=== PATIENT | female | born 1950 | race Caucasian/White ===

== ENCOUNTER 2024-05-30 15:40 | Emergency (ER) | payer MEDICARE, SELFPAY ==
[2024-05-30 15:42] VITALS: BP 135/74; PULSE 63; RESP 16; TEMP 35.9; O2SAT 100
--- NOTE | 2024-05-30 16:06 | EKG12_ITS ---
Test Reason : GENERAL Blood Pressure : / mmHG Vent. Rate : 058 BPM Atrial Rate : 058 BPM P-R Int : 152 ms QRS Dur : 084 ms QT Int : 454 ms P-R-T Axes : 059 006 028 degrees QTc Int : 445 ms Sinus bradycardia with sinus arrhythmia Otherwise normal ECG Confirmed by WILLIAMS MARSH, KANDACE ([id number]), supervising editor news reel CARLOS AGGARWAL ([id number]) on 06/01/2024 7:53:31 AM Referred By: Confirmed By:KANDACE KRAMER MD
--- NOTE | 2024-05-30 16:09 | NURSING ---
NO OLD EKGS
--- NOTE | 2024-05-30 16:21 | EX.ED.DYSGE1 ---
HPI <ERICA Snyder - Last Filed: 05/30/24 19:49> History of Present Illness Chief Complaint: Nausea/Vomiting Narrative Narrative: Patient is 73-year-old female who does not see a primary care physician who is not currently on any medications. Patient does not smoke, drinks alcohol occasionally who presents to the emergency department for sudden onset of back pain, an episode of nausea and vomiting, she states it felt like she was bearing down. Patient was with her daughter shopping, they immediately drove her here. Patient states she is still having slight pain however is nothing like what it was. She denied any syncopal episode, she denied any abdominal pain, chest pain, denies any bowel or bladder incontinence. PFSH <ERICA Snyder - Last Filed: 05/30/24 19:49> [facility] Home Medications ?Medication ?Instructions ?Recorded ?Last Taken ?Type nitrofurantoin 100 mg PO Q12H 5 days #10 caps 05/30/24 Unknown Rx monohydrate/macrocrystals 100 mg capsule (Macrobid) Allergy/AdvReac Type Severity Reaction Status Date / Time Penicillins (PCN) Allergy Mild Rash Verified 05/30/24 15:41 Social History Smoking Status: Never smoker ROS <ERICA Snyder - Last Filed: 05/30/24 19:49> ROS ED ROS Narrative Constitutional: Negative for fever, chills, weight loss, weakness Eyes: Negative for vision loss, vision change, double vision ENT: Negative for any sore throat, ear pain, congestion Cardiovascular: Negative for any chest pain, tightness, palpitations Respiratory: Negative for any cough, sputum production, hemoptysis, dyspnea, dyspnea on exertion, orthopnea Gastrointestinal: Negative for any abdominal pain, diarrhea, constipation, blood in stool, blood in vomit. Positive for nausea and vomiting : Negative for any urinary frequency, dysuria, retention, blood in urine Muscle skeletal: Negative for any neck pain. Positive for mid back pain Neurological: Negative for any headache, syncope, dizziness Skin: Negative for any rashes, itching, abrasions, lacerations Psychiatric: Negative for any depression, anxiety, stress, suicidal ideation, homicidal ideation Hematologic: Negative for any excessive bruising, easy bleeding EXAM <ERICA Snyder - Last Filed: 05/30/24 19:49> Physical Exam Narrative Exam Narrative: Vital signs reviewed. Patient on my exam showed no acute process. HEET: Head normocephalic atraumatic, TMs clear bilaterally. Posterior pharynx is clear, moist mucous membranes. Nares clear bilaterally. Neck: Supple with no lymphadenopathy or tenderness. No signs of meningismus. Cardiac: Regular rate and rhythm no murmurs gallops or rubs, equal peripheral pulses bilaterally. Respiratory: Lungs clear to auscultation bilaterally. No chest tenderness. Abdomen: Soft, nontender, nondistended. No abdominal bruit or pulsatile masses. No hepatosplenomegaly Extremities: No peripheral edema, no signs of gross trauma or deformity. Active full range of motion of all extremities. Neuro: Cranial nerves II through XII intact, no focal neurological deficits. Skin: Clean dry and intact with no rash, purpura, petechiae, vesicles or pustules. Backs/flank: No CVA tenderness, no midline spinal tenderness, no deformity. Psych: Normal mood and affect. No SI, HI or acute psychosis. Const Vital Signs: 05/30/24 15:42 05/30/24 17:40 05/30/24 19:00 Temperature 96.7 F L Temperature Source Temporal Pulse Rate 63 76 61 Respiratory Rate 16 18 16 Blood Pressure 135/74 H 137/64 H 109/71 Blood Pressure Mean 94 88 83 Pulse Ox 100 97 97 Oxygen Delivery Method Room Air Room Air Room Air 05/30/24 19:30 Temperature Temperature Source Pulse Rate Respiratory Rate Blood Pressure 123/69 H Blood Pressure Mean 87 Pulse Ox Oxygen Delivery Method Positive well nourished and well developed General Appearance ED: well developed <Dr. Nelson Rios MD - Last Filed: 05/30/24 19:52> Physical Exam Const Vital Signs: 05/30/24 15:42 05/30/24 17:40 05/30/24 19:00 Temperature 96.7 F L Temperature Source Temporal Pulse Rate 63 76 61 Respiratory Rate 16 18 16 Blood Pressure 135/74 H 137/64 H 109/71 Blood Pressure Mean 94 88 83 Pulse Ox 100 97 97 Oxygen Delivery Method Room Air Room Air Room Air 05/30/24 19:30 Temperature Temperature Source Pulse Rate Respiratory Rate Blood Pressure 123/69 H Blood Pressure Mean 87 Pulse Ox Oxygen Delivery Method MDM <ERICA Snyder - Last Filed: 05/30/24 19:49> MDM Lab Data Labs: Laboratory Results - last 24 hr 05/30/24 05/30/24 05/30/24 16:21 18:11 18:50 WBC 8.3 RBC 4.74 Hgb 13.2 Hct 41.1 MCV 86.7 MCH 27.8 MCHC 32.1 RDW Std Deviation 43.3 RDW Coeff of Carina 13.7 Plt Count 220 MPV 10.9 Immature Gran % (Auto) 0.200 Neut % (Auto) 79.2 H Lymph % (Auto) 13.1 L Rankin % (Auto) 7.1 Eos % (Auto) 0.0 Baso % (Auto) 0.4 Absolute Neuts (auto) 6.6 Absolute Lymphs (auto) 1.09 Nucleated RBC % 0 Sodium 141 Potassium 4.2 Chloride 111 H Carbon Dioxide 23.0 Anion Gap 7 BUN 21 H Creatinine 0.98 Est GFR (MDRD) Af Amer 71 Est GFR (MDRD) Non-Af 59 L BUN/Creatinine Ratio 21.4 H Glucose 87 Calcium 8.9 Total Bilirubin 0.40 AST 142 H ALT 62 H Alkaline Phosphatase 117 Troponin I High Sens < 3 L 4 Total Protein 6.9 Albumin 3.7 Globulin 3.2 Albumin/Globulin Ratio 1.2 Lipase 43 Urine Color Straw Urine Clarity Clear Urine pH 8.0 Ur Specific Faison 1.010 Urine Protein Negative Urine Glucose (UA) Normal Urine Ketones Negative Urine Occult Blood Negative Urine Nitrite Negative Urine Bilirubin Negative Urine Urobilinogen Normal Ur Leukocyte Esterase 25 H Urine RBC 0 SEEN Urine WBC 10-25 SEEN Ur Squamous Epith Cells 0 SEEN Urine Bacteria 1+ Urine Mucus 1+ Radiography Diagnostic Testing: Clinical Impression(s) from Imaging Studies Chest/Abdomen/Pelvis CTA 05/30/24 17:12 IMPRESSION: No demonstrated pulmonary embolism or arterial dissection. There are no acute findings. STUDY: CTA Chest and CTA Abdomen and Pelvis W/ Contrast Injection (and W/O Contrast Images if performed) REASON FOR EXAM: Female, 73 years old. Back pain TECHNIQUE: Axial CT angiography multi-detector data acquisition was obtained following intravenous administration of IV 100mL Isovue-370 contrast. Axial images and MIP images were reconstructed from the axial data set. Post-processing of the angiographic images was performed, with multiplanar reformation and 3D reconstruction. MIPS images were obtained. Individualized dose optimization techniques were used for this CT. COMPARISON: None. FINDINGS: The visualized lung bases are unremarkable. The visualized portions of the heart are within normal limits. Normal liver. Normal gallbladder and extrahepatic biliary system. Normal spleen. Normal pancreas. Normal bilateral adrenal glands. No acute findings of the right kidney. There are hypodensities in the left kidney. These are consistent for cysts. No follow up required. Normal visualized stomach. Normal small intestine. There are multiple colonic diverticula consistent with diverticulosis. The appendix is visualized and appears normal. Normal inferior vena cava. Normal retroperitoneum. Normal urinary bladder. Normal visualized uterus. There is a small umbilical hernia containing fat. There are diffuse degenerative changes of the visualized lumbar spine. There is an unremarkable-appearing IVC. Abdominal aorta: There are calcifications of the abdominal aorta. This is consistent for atherosclerotic disease. There is no abdominal aortic aneurysm. Celiac and superior mesenteric arteries: There is mild diffuse narrowing. Inferior mesenteric artery: There is mild diffuse narrowing. Right renal artery(arteries): There is mild diffuse narrowing. Left renal artery(arteries): There is mild diffuse narrowing. Right common iliac artery: There is mild diffuse narrowing. Right external iliac artery: There is mild diffuse narrowing. Right internal iliac artery: There is mild diffuse narrowing. Left common iliac artery: There is mild diffuse narrowing. Left external iliac artery: There is mild diffuse narrowing. Left internal iliac artery: There is mild diffuse narrowing. IMPRESSION: (NOT LISTED IN ORDER OF SIGNIFICANCE) There are no acute findings. Diverticulosis. No aortic aneurysm. No abdominal aortic dissection Other findings as above. Electronically Signed: Travis Winchester MD at 18:29 EDT , EKG Sinus bradycardia with sinus arrhythmia: Attestation: I personally reviewed and interpreted this EKG as follows: Comments: Sinus bradycardia with sinus arrhythmia, rate of 58 bpm, [place] interval 152 ms, QRS duration 84 ms, no acute ST elevation, no acute infarct noted. Treatment and Re-Evaluation :: Differential diagnosis includes however is not limited to: ACS, NM, vasovagal reaction, acute cholecystitis, biliary colic, Patient appears generally well, vital signs are stable, patient is nontoxic-appearing. Presenting to the emergency department with complaints of severe back pain with a bearing down sensation, nausea and vomiting. Patient will receive an abdominal pain workup as well as a chest pain workup. Patient was given IV fluids, Zofran and morphine. All radiologic examinations were read, reviewed by the emergency department attending. From these reads, a plan of care will be put in place. Patient will be reevaluated Patient's laboratory values showed normal CBC, patient's chemistries show chloride of 111, creatinine 0.98 which is stable. Alkaline phosphatase 142, ALT of 62, we this is reactive from vomiting. Troponin less than 3. Lipase negative. Patient will receive a delta troponin. CTA of the chest abdomen pelvis shows no acute findings, no aortic aneurysm. No abdominal aortic dissection. Patient's urinalysis did have 1+ bacteria, 10-25 white blood cells, 25 leukocyte esterase, speaking with the patient on reevaluation, she has had slight urgency recently. This we sent for culture, patient will be placed on Macrobid twice a day for 5 days. Currently waiting on the delta troponin Delta troponin was negative. At this time, patient will be treated for her UTI, she was given Macrobid before discharge. Twice a day for 5 days. She will follow-up outpatient. All questions answered, stable for discharge. <Dr. Nelson Rios MD - Last Filed: 05/30/24 19:52> [facility] Narrative Medical decision making narrative: I have personally performed a face to face assessment of the patient and have reviewed the ESTEFANIA Note. I performed a substantive portion of the visit including all aspects of the following. My maier findings include: History is previously healthy 73-year-old female states she was at [employer] today not doing anything active for in particular when she suddenly had simultaneous onset of pain across her low back nonlateralizing and the need to have a bowel movement. After having a bowel movement that was otherwise normal the pain did not go away. She came here to the ER and on the way vomited and then the pain eased. She still has the pain right now but it is not as bad. She denies any abdominal discomfort, chest discomfort, dyspnea, near-syncope or syncope, or upper back discomfort. No radiation of discomfort, numbness, weakness in her lower extremities. No bowel or bladder dysfunction. Never had this before. Exam is nontender back normal inspection no CVA tenderness. She is indicating at the level of the kidneys or lower as the location of pain. Abdomen soft nontender nondistended normal inspection no pulsatile masses. Strong pulses symmetric bilateral feet. Heart regular, lungs clear, will-appearing at this time, is not in pain as she is actively sitting up. Medical Decison Making certainly reasonable to evaluate for the possibility of acute coronary syndrome, ruptured AAA, perforated viscus, diverticulitis, although the pattern and symptoms suggest a GI etiology. She is doing well right now. Obtaining labs, EKG with a delta troponin and CT of the abdomen/pelvis along with a screening chest x-ray. Prior to getting CT, daughter told REINSTATEMENT CLERK that multiple family members have thoracic aortic aneurysms, and they would like her evaluated for that. Although patient's symptoms do not suggest an intrathoracic etiology, we were happy to change the CT to CT angiography of the chest/abdomen/pelvis in order to additionally evaluate for this and cancel the CXR. I reviewed these images as well as the report and I agree with it; it is negative for aneurysm, dissection, or anything else acute in this area. The urine shows some mild signs of infection. She is admitting to some urinary frequency. Unknown if a bladder spasm was the cause of her low back pain, but there are amenable to treating this empirically at this time and she will follow-up. Of note, vital signs at discharge are normal. Referred to next doc on unassigned list, Dr. Ramos. Other additions or changes: [None] Lab Data Attestation: I reviewed the patient's lab results. Labs: Laboratory Results - last 24 hr 05/30/24 05/30/24 05/30/24 16:21 18:11 18:50 WBC 8.3 RBC 4.74 Hgb 13.2 Hct 41.1 MCV 86.7 MCH 27.8 MCHC 32.1 RDW Std Deviation 43.3 RDW Coeff of Carina 13.7 Plt Count 220 MPV 10.9 Immature Gran % (Auto) 0.200 Neut % (Auto) 79.2 H Lymph % (Auto) 13.1 L Rankin % (Auto) 7.1 Eos % (Auto) 0.0 Baso % (Auto) 0.4 Absolute Neuts (auto) 6.6 Absolute Lymphs (auto) 1.09 Nucleated RBC % 0 Sodium 141 Potassium 4.2 Chloride 111 H Carbon Dioxide 23.0 Anion Gap 7 BUN 21 H Creatinine 0.98 Est GFR (MDRD) Af Amer 71 Est GFR (MDRD) Non-Af 59 L BUN/Creatinine Ratio 21.4 H Glucose 87 Calcium 8.9 Total Bilirubin 0.40 AST 142 H ALT 62 H Alkaline Phosphatase 117 Troponin I High Sens < 3 L 4 Total Protein 6.9 Albumin 3.7 Globulin 3.2 Albumin/Globulin Ratio 1.2 Lipase 43 Urine Color Straw Urine Clarity Clear Urine pH 8.0 Ur Specific Faison 1.010 Urine Protein Negative Urine Glucose (UA) Normal Urine Ketones Negative Urine Occult Blood Negative Urine Nitrite Negative Urine Bilirubin Negative Urine Urobilinogen Normal Ur Leukocyte Esterase 25 H Urine RBC 0 SEEN Urine WBC 10-25 SEEN Ur Squamous Epith Cells 0 SEEN Urine Bacteria 1+ Urine Mucus 1+ Radiography Diagnostic Testing: Clinical Impression(s) from Imaging Studies Chest/Abdomen/Pelvis CTA 05/30/24 17:12 IMPRESSION: No demonstrated pulmonary embolism or arterial dissection. There are no acute findings. STUDY: CTA Chest and CTA Abdomen and Pelvis W/ Contrast Injection (and W/O Contrast Images if performed) REASON FOR EXAM: Female, 73 years old. Back pain TECHNIQUE: Axial CT angiography multi-detector data acquisition was obtained following intravenous administration of IV 100mL Isovue-370 contrast. Axial images and MIP images were reconstructed from the axial data set. Post-processing of the angiographic images was performed, with multiplanar reformation and 3D reconstruction. MIPS images were obtained. Individualized dose optimization techniques were used for this CT. COMPARISON: None. FINDINGS: The visualized lung bases are unremarkable. The visualized portions of the heart are within normal limits. Normal liver. Normal gallbladder and extrahepatic biliary system. Normal spleen. Normal pancreas. Normal bilateral adrenal glands. No acute findings of the right kidney. There are hypodensities in the left kidney. These are consistent for cysts. No follow up required. Normal visualized stomach. Normal small intestine. There are multiple colonic diverticula consistent with diverticulosis. The appendix is visualized and appears normal. Normal inferior vena cava. Normal retroperitoneum. Normal urinary bladder. Normal visualized uterus. There is a small umbilical hernia containing fat. There are diffuse degenerative changes of the visualized lumbar spine. There is an unremarkable-appearing IVC. Abdominal aorta: There are calcifications of the abdominal aorta. This is consistent for atherosclerotic disease. There is no abdominal aortic aneurysm. Celiac and superior mesenteric arteries: There is mild diffuse narrowing. Inferior mesenteric artery: There is mild diffuse narrowing. Right renal artery(arteries): There is mild diffuse narrowing. Left renal artery(arteries): There is mild diffuse narrowing. Right common iliac artery: There is mild diffuse narrowing. Right external iliac artery: There is mild diffuse narrowing. Right internal iliac artery: There is mild diffuse narrowing. Left common iliac artery: There is mild diffuse narrowing. Left external iliac artery: There is mild diffuse narrowing. Left internal iliac artery: There is mild diffuse narrowing. IMPRESSION: (NOT LISTED IN ORDER OF SIGNIFICANCE) There are no acute findings. Diverticulosis. No aortic aneurysm. No abdominal aortic dissection Other findings as above. Electronically Signed: Travis Winchester MD at 18:29 EDT Reading Location ID and State: [facility] / [place] , Service support , Discharge Plan Triage Chief Complaint: Nausea/Vomiting Other Complaint: Flank Pain ED Midlevel Provider: Jeramie Funez ED Provider: Nelson Rios Dx/Rx/DC Orders Clinical Impression: Back pain, Acute UTI Instructions: Urinary Tract Infections in Women, ED Pain, Acute, Uncertain Cause Prescriptions: New nitrofurantoin monohyd/m-cryst [Macrobid] 100 mg capsule 100 mg PO Q12H 5 Days Qty: 10 0RF Rx Instructions: must administer with a meal/food Primary Care Provider: Care Physician,No Primary Referrals: Jeramie Ramos MD [Med Staff - Active Staff] - NOT,DEFINED [Non-Staff] - Activity Restrictions/Additional Instructions: Please follow-up outpatient. Print Language: Lithuanian Disposition Disposition: Home, Self Care
[2024-05-30] MEDS: 0.9% Normal Saline (1000mL) 1,000 ML 999 ML IV (16:24)
--- OUTSIDE RECORDS SUMMARY | 2024-05-30 16:24 | XMS RPT_ITS | CCD ---
Author Organization [facility] Care Team Providers Care Chief Building Inspector Name Role Phone ADDISON TONIECR Attending Unavailable NO FAMILY DOCTOR, NO FAMILY DOCTOR Primary Care Unavailable LUCÍA MORILLO Attending Unavailable NO FAMILY DOCTOR, NO FAMILY DOCTOR Primary Care Unavailable Unavailable Primary Care Provider UnavailIam Terry MD, [facility] Primary Care [facility] ider ADITYA AARON Attending Unavailable MEGA PINEDO Attending Unavailable Allergies Allergy Classification Reported Allergen(s) Allergy Type Date of Onset Reaction(s) Facility (3 sources) Cephalexin; Translations: [CEPHALEXIN] Drug Allergy 11-25-2016 [facility] (3 sources) Ciprofloxacin; Translations: [CIPROFLOXACIN] Drug Allergy 08-25-2015 [facility] (3 sources) Neomycin; Translations: [NEOMYCIN] Drug Allergy 12-05-2016 [facility] (3 sources) Penicillin; Translations: [PENICILLIN] Drug Allergy 12-05-2016 [facility] Medications Current Medications Medication Drug Class(es) Dates Sig (Normalized) Sig (Original) amoxicillin 875 mg / clavulanate 125 mg oral tablet (2 sources) Penicillin-class Antibacterial Start: 03-11-2024 End: 03-21-2024 take 1 tablet by mouth every twelve hours amoxicillin-clavulan ate potassium (AUGMENTIN) 875-125 mg per tablet Indications: Mastoiditis of left side Take 1 tablet by mouth every 12 hours for 10 days. 20 tablet 0 03/11/2024 03/21/2024 Active [id number] 0.3 ml EPINEPHrine 1 mg/ml auto-injector (2 sources) alpha-Adrenergic Agonist, beta-Adrenergic Agonist, Catecholamine Start: 11-25-2016 EPINEPHrine (EPIPEN 2-PARIS) 0.3 mg/0.3 mL auto-injector Inject 0.3 mL intramuscularly as needed. 1 Each 11/25/2016 Active ibuprofen 800 mg oral tablet (3 sources) Nonsteroidal Anti-inflammatory Drug Start: 03-11-2024 take 1 tablet by mouth every eight hours as needed for pain ibuprofen (MOTRIN) 800 mg tablet Indications: Mastoiditis of left side Take 1 tablet by mouth every 8 hours as needed for pain. 20 tablet 03/11/2024 Active triamcinolone acetonide 1 mg/ml topical cream (2 sources) Corticosteroid Start: 08-01-2023 triamcinolone acetonide (KENALOG) 0.1 % cream Indications: Atopic dermatitis, unspecified type , Discoloration of skin Apply to affected area two times a day as needed. 453.6 g 08/01/2023 Active Problems Active Problems Problem Classification Problem Date Documented Da te Episodic/Chronic Allergic reactions (1 source) Allergy status to penicillin Onset: 10-03-2018 Episodic Fluid and electrolyte disorders (1 source) Hypokalemia Onset: 10-03-2018 Episodic Lymphadenitis (1 source) Lymphadenopathy; Translations: [Generalized enlarged lymph nodes] 03-17-2024 Episodic Other inflammatory condition of skin (1 source) Erythematous condition, unspecified; Translations: [Unspecified erythematous condition] 03-17-2024 Episodic Other lower respiratory disease (2 sources) Shortness of breath; Translations: [Shortness of breath] Onset: 10-03-2018 Episodic Other screening for suspected conditions (not mental disorders or infectious disease) (1 source) Patient encounter status; Translations: [Encounter for screening mammogram for malignant neoplasm of breast] 03-17-2024 Episodic Other skin disorders (1 source) Dyshidrosis [pompholyx] Onset: 10-03-2018 Episodic Other skin disorders (2 sources) Rash and other nonspecific skin eruption; Translations: [Rash and other nonspecific skin eruption] Onset: 10-03-2018 Episodic Otitis media and related conditions (1 source) Left mastoiditis; Translations: [Unspecified mastoiditis, left ear] 03-11-2024 Episodic Skin and subcutaneous tissue infections (1 source) Erysipelas; Translations: [Erysipelas] 03-17-2024 Episodic Unclassified (1 source) Exposure to other specified factors, initial encounter Onset: 10-03-2018 Unclassified (2 sources) Other allergy, initial encounter; Translations: [Other allergy, initial encounter] Onset: 10-01-2018 Unclassified (3 sources) Allergy, unspecified, initial encounter; Translations: [Allergy, unspecified, initial encounter] Onset: 10-03-2018 Unclassified (2 sources) Pruritus, unspecified; Translations: [Pruritus, unspecified] Onset: 10-03-2018 Unclassified (1 source) Other custodial (current) drug therapy Onset: 10-01-2018 Unclassified (1 source) Anaphylactic shock, unspecified, initial encounter Onset: 10-01-2018 Past or Other Problems Problem Classification Problem Date Documented Da te Episodic/Chronic Superficial injury; contusion (2 sources) Contusion of left knee; Translations: [Contusion of left knee, initial encounter] Onset: 08-25-2015 08-25-2015 Episodic Results Test Name Value Interpretation Reference Range Facility CNOVon 03-17-2024 CNOV Office Visit (INTMLN ) STEPHEN THOMAS ([id number]) 1950 F Date Time Provider Department 03/17/24 9:00 AM ADITYA AARON INTMLN During your visit today, we recorded the following information about you: Temperature Pulse Blood pressure Weight 97.8 degrees 62/minute 116/74 62.4 kg Aditya Aaron, LODGE SALES ASSOCIATE.PREPARATION DEPARTMENT SUPERVISOR 03/17/2024 9:48 AM Signed CC:ED follow up S:seen at [place] [facility] 03/12/24 See summary below: ED Course as of 03/12/24 [email or web address] Alana Lea's Documentation FriMar 12, [address] SINUS WO IVCON IMPRESSION: Clear sinuses. Mastoid air cells and middle ear cavities are clear. No abnormal soft tissue thickening or stranding. 1642 CBC + AUTO DIFF: WBC 7.28 RBC 5.18 Hemoglobin 14.4 Hematocrit 45.4 MCV 87.6 MCH 27.8 MCHC 31.7 RDW-CV 13.5 Platelet Count 236 MPV 11.2 Neut% 69.5 Abs Neut (ANC) 5.06 Lymph% 18.3 Abs Lymph 1.33 Loudoun% 11.1 Abs [place]oun 0.81 Eosin% 0.0 Abs Eosin <0.03 Baso% 0.7 Abs Baso 0.05 Immature Gran % 0.4 IMMATURE GRANS (ABS) 0.03 NRBC 0.0 Absolute nRBC <0.01 DTYPE Auto I have personally reviewed and interpreted the above laboratory study. Findings: No leukocytosis, anemia, quantitative platelet abnormalities 1642 BASIC METABOLIC PANEL: Glucose 81 BUN 19 Creatinine 0.94 Sodium 140 Potassium 4.7 Chloride 102 CO2 28 Anion Gap 10 Calcium 9.8 eGFR 64 I have personally reviewed and interpreted the above laboratory study. Findings: No clinically significant renal or electrolyte abnormalities Clinical Impressions as of 03/12/24 1737 Erysipelas Lymphadenopathy Facial erythema MDM / Disposition / Plan On evaluation, the patient does have left-sided posterior auricular lymphadenopathy associated with erythema that extends to the preauricular region and involves the face. The erythema is very mild at this time. There is no rash elsewhere to suggest systemic infection. Patient is afebrile and hemodynamically stable in the emergency department. No evidence of acute otitis media identified on physical exam. No evidence of otitis externa. Patient has no headache and no focal neurologic symptoms. Laboratory studies without any acute clinically significant laboratory abnormalities. CT demonstrating no evidence of mastoiditis at this time. Given the clinical history and progression of symptoms, most likely erysipelas at this time. Low suspicion for deep space or NET FISHER infection at this time. Patient was previously prescribed Augmentin and has been tolerating it for 1 dose. She requested potentially changing antibiotics due to prior intolerance of Augmentin causing rash previously. We discussed potential to change to clindamycin, however risk and benefits of changing antibiotics were discussed and patient elected to continue Augmentin at this time. Ele is reestablishing care today, she was last seen for acute problems in 2019 and has not had any medical health care since that time. She is taking the Augmentin as directed and has had significant improvement. Resolution of redness and swelling, there is no further pain or swollen lymph nodes.. Taking Benadryl which she has had a prior history of a rash with penicillin. She denies any chronic medical problems. Hobbies include sewing and playing cards. O:BP 116/74 Pulse 62 Temp 36.6 ?C (97.8 ?F) Wt 62.4 kg (137 lb 9.1 oz) SpO2 98% BMI 25.57 kg/m? PHYSICAL EXAMINATION: General appearance: Well appearing, alert, in no acute distress, well-hydrated, well nourished. Skin: No facial erythema Head: Normocephalic, no masses, lesions, tenderness or abnormalities, no lymphadenopathy Ears: External ears normal, canals clear Neck: Supple, no adenopathy A:(A46) Erysipelas (primary encounter diagnosis) (R59.1) Lymphadenopathy Comment: Resolved Plan: Finish Augmentin and continue Benadryl. Call if there is any allergic reaction (Z12.31) Encounter for screening mammogram for breast cancer Plan: LOGAN SCREENING W LIZETTE Follow-up for Medicare wellness exam to establish care with Dr. Emanuel. Aditya Aaron APRN.PREPARATION DEPARTMENT SUPERVISOR Allergies As of Date: 03/17/2024 Noted Allergy Reaction CIPROFLOXACIN 08/25/2015 4 - Hives Comments: PT STATES SHE IS ALLERGIC TO MANY ANTIBIOTICS-CAN'T RECALL THE NAMES BUT KNOWS SHE IS ABLE TO TAKE SULFA KEFLEX (CEPHALEXIN) 11/25/2016 2 - Rash NEOMYCIN 12/05/2016 2 - Rash PENICILLIN 12/05/2016 2 - Rash Date Reviewed: 03/12/2024 Reviewed by: Sayra Shah RN - Fully Assessed Reason for Visit: Hospital F/U [57] Cmt: Pt has no concerns Primary Visit Diagnosis:Erysipelas [A46] Other Visit Diagnoses:Lymphadenopa thy [R59.1] Facial erythema [L53.9] Encounter for screening mammogram for breast cancer [Z12.31] Order(s):LOGAN SCREENING W LIZETTE [[id number]] Order #: [id number] FUTURE Prescriptions as of 03/17/2024 - amoxicillin-clavulanat e potassium (more content not included)... Normal [facility] Basic metabolic 2000 panelon 03-12-2024 Anion gap [Moles/Vol] 10 mmol/L Normal 8-15 [facility] Comment on above: Order Comment: Speci men Type: BLOOD SPECIMEN Ordering Facility: [facility] Address: [address] [place] [address] Performed By: #### 2 4321-2 #### [facility] CLIA [id number] [address] [place] [address] [place] Calcium [Mass/Vol] 9.8 mg/dL Normal 8.5-10.2 [facility] Comment on above: Order Comment: Speci men Type: BLOOD SPECIMEN Ordering Facility: [facility] Address: [address] [place] [address] Performed By: #### 2 4321-2 #### [facility] CLIA [id number] [address] [place] [address] [place] Chloride [Moles/Vol] 102 mmol/L Normal 98-107 [facility] Comment on above: Order Comment: Speci men Type: BLOOD SPECIMEN Ordering Facility: [facility] Address: [address] [place] [address] Performed By: #### 2 4321-2 #### [facility] IA [id number] [address] [place] [address] [place] CO2 [Moles/Vol] 28 mmol/L Normal 22-30 [facility] Comment on above: Order Comment: Speci men Type: BLOOD SPECIMEN Ordering Facility: [facility] Address: [address] [place] [address] Performed By: #### 2 4321-2 #### [facility] IA [id number] [address] [place] [address] [place] Creatinine [Mass/Vol] 0.94 mg/dL Normal 0.58-0.96 [facility] Comment on above: Order Comment: Speci men Type: BLOOD SPECIMEN Ordering Facility: [facility] Address: [address] [place] [address] Performed By: #### 2 4321-2 #### [facility] CLIA [id number] [place] [address] [place] Creatinine and Glomerular filtration rate.predicted panel (S/P/Bld) 64 mL/min/1.73m??? Normal >=60 [facility] Comment on above: Order Comment: Jean Pierre hebert Type: BLOOD SPECIMEN Ordering Facility: [facility] Address: [address] [place] [address] Result Comment: Freda mated Glomerular Filtration Rate (eGFR) is calculated using the 2020 CKD-EPI creatinine equation. This equation utilizes serum creatinine, sex, and age as parameters. The creatinine assay has traceable calibration to isotope dilution-mass spectrometry. Refer to KDIGO guidelines for clinical interpretation. In patients with unstable renal function, e.g. those with acute kidney injury, the eGFR may not accurately reflect actual GFR. Performed By: #### 2 4321-2 #### [facility] CLIA [id number] [place] [address] [place] Glucose [Mass/Vol] 81 mg/dL Normal 74-99 [facility] Comment on above: Order Comment: Jean Pierre hebert Type: BLOOD SPECIMEN Ordering Facility: [facility] Address: [address] [place] [address] Result Comment: The [place] Diabetes Association (ADA) provides guidance for cutoff values for fasting glucose and random glucose. The ADA defines fasting as no caloric intake for at least 8 hours. Fasting plasma glucose results between 100 to 125 mg/dL indicate increased risk for diabetes (prediabetes). Fasting plasma glucose results greater than or equal to 126 mg/dL meet the criteria for diagnosis of diabetes. In the absence of unequivocal hyperglycemia, results should be confirmed by repeat testing. In a patient with classic symptoms of hyperglycemia or hyperglycemic crisis, random plasma glucose results greater than or equal to 200 mg/dL meet the criteria for diagnosis of diabetes. Reference: Standards of Medical Care in Diabetes 2016, [place] [employer] Association. Diabetes Care. 2016.39(Suppl 1). Performed By: #### 2 4321-2 #### [facility] CLIA [id number] [address] [place] [address] [place] Potassium [Moles/Vol] 4.7 mmol/L Normal 3.7-5.1 [facility] Comment on above: Order Comment: Jean Pierre hebert Type: BLOOD SPECIMEN Ordering Facility: [facility] Address: [address] [place], [place] [address] Performed By: #### 2 4321-2 #### [facility] CLIA [id number] [address] [place] [address] [place] Sodium [Moles/Vol] 140 mmol/L Normal 136-144 [facility] Comment on above: Order Comment: Speci men Type: BLOOD SPECIMEN Ordering Facility: [facility] Address: [address] [place] [address] Performed By: #### 2 4321-2 #### [facility] IA [id number] [address] [place] [address] [place] Urea nitrogen [Mass/Vol] 19 mg/dL Normal 7-21 [facility] Comment on above: Order Comment: Speci men Type: BLOOD SPECIMEN Ordering Facility: [facility] Address: [address] [place] [address] Performed By: #### 2 4321-2 #### [facility] IA [id number] [address] [place] [address] [place] CBC W Auto Differential pane l (Bld)on 03-12-2024 Basophils (Bld) [#/Vol] 0.05 10*3/uL Normal <0.11 [facility] Comment on above: Order Comment: Speci men Type: BLOOD SPECIMEN Ordering Facility: [facility] Address: [address] [place] [address] Performed By: #### 5 7021-8 #### [facility] IA [id number] [address] [place] [address] [place] Basophils/100 WBC (Bld) 0.7 % Normal [facility] Comment on above: Order Comment: Speci men Type: BLOOD SPECIMEN Ordering Facility: [facility] Address: [address] [place] [address] Performed By: #### 5 7021-8 #### [facility] IA [id number] [address] [place] [address] [place] Differential cell count method Nom (Bld) Auto Normal [facility] Comment on above: Order Comment: Speci men Type: BLOOD SPECIMEN Ordering Facility: [facility] Address: [address] [place] [address] Performed By: #### 5 7021-8 #### [facility] CLIA [id number] [address] [place] [address] [place] Eosinophils (Bld) [#/Vol] 10*3/uL Normal <0.46 [facility] Comment on above: Order Comment: Speci men Type: BLOOD SPECIMEN Ordering Facility: [facility] Address: [address] [place] [address] Performed By: #### 5 7021-8 #### [facility] CLIA [id number] [address] [place] [address] [place] Eosinophils/100 WBC (Bld) 0.0 % Normal [facility] Comment on above: Order Comment: Speci men Type: BLOOD SPECIMEN Ordering Facility: [facility] Address: [address] [place] [address] Performed By: #### 5 7021-8 #### [facility] IA [id number] [address] [place] [address] [place] Erythrocyte distribution width (RBC) [Ratio] 13.5 % Normal 11.5-15.0 [facility] Comment on above: Order Comment: Speci men Type: BLOOD SPECIMEN Ordering Facility: [facility] Address: [address] [place] [address] Performed By: #### 5 7021-8 #### [facility] IA [id number] [address] [place] [address] [place] Hematocrit (Bld) [Volume fraction] 45.4 % Normal 36.0-46.0 [facility] Comment on above: Order Comment: Speci men Type: BLOOD SPECIMEN Ordering Facility: [facility] Address: [address] [place] [address] Performed By: #### 5 7021-8 #### [facility] IA [id number] [address] [place] [address] [place] Hemoglobin (Bld) [Mass/Vol] 14.4 g/dL Normal 11.5-15.5 [facility] Comment on above: Order Comment: Speci men Type: BLOOD SPECIMEN Ordering Facility: [facility] Address: [address] [place] [address] Performed By: #### 5 7021-8 #### [facility] IA [id number] [address] [place] [address] [place] Immature granulocytes (Bld) [#/Vol] 0.03 10*3/uL Normal <0.10 [facility] Comment on above: Order Comment: Speci men Type: BLOOD SPECIMEN Ordering Facility: [facility] Address: [address] [place] [address] Performed By: #### 5 7021-8 #### [facility] IA [id number] [address] [place] [id number] [place] Immature granulocytes/100 WBC (Bld) 0.4 % Normal [facility] Comment on above: Order Comment: Speci men Type: BLOOD SPECIMEN Ordering Facility: [facility] Address: [address] [place] [address] Performed By: #### 5 7021-8 #### [facility] IA [id number] [address] [place] [address] [place] Lymphocytes (Bld) [#/Vol] 1.33 10*3/uL Normal 1.00-4.00 [facility] Comment on above: Order Comment: Speci men Type: BLOOD SPECIMEN Ordering Facility: [facility] Address: [address] [place] [address] Performed By: #### 5 7021-8 #### [facility] IA [id number] [address] [place] [address] [place] Lymphocytes/100 WBC (Bld) 18.3 % Normal [facility] Comment on above: Order Comment: Speci men Type: BLOOD SPECIMEN Ordering Facility: [facility] Address: [address] [place] [address] Performed By: #### 5 7021-8 #### [facility] IA [id number] [address] [place] [address] [place] MCH (RBC) [Entitic mass] 27.8 pg Normal 26.0-34.0 [facility] Comment on above: Order Comment: Speci men Type: BLOOD SPECIMEN Ordering Facility: [facility] Address: [address] [place] [address] Performed By: #### 5 7021-8 #### [facility] CLIA [id number] [address] [place] [address] [place] MCHC (RBC) [Mass/Vol] 31.7 g/dL Normal 30.5-36.0 [facility] Comment on above: Order Comment: Speci men Type: BLOOD SPECIMEN Ordering Facility: [facility] Address: [address] [place] [address] Performed By: #### 5 7021-8 #### [facility] IA [id number] [address] [place] [address] [place] MCV (RBC) [Entitic vol] 87.6 fL Normal 80.0-100.0 [facility] Comment on above: Order Comment: Speci men Type: BLOOD SPECIMEN Ordering Facility: [facility] Address: [address] [place] [address] Performed By: #### 5 7021-8 #### [facility] IA [id number] [address] [place] [address] [place] Monocytes (Bld) [#/Vol] 0.81 10*3/uL Normal <0.87 [facility] Comment on above: Order Comment: Speci men Type: BLOOD SPECIMEN Ordering Facility: [facility] Address: [address] [place] [address] Performed By: #### 5 7021-8 #### [facility] CLIA [id number] [place] Monocytes/100 WBC (Bld) 11.1 % Normal [facility] Comment on above: Order Comment: Speci men Type: BLOOD SPECIMEN Ordering Facility: [facility] Address: [address] [place] [address] Performed By: #### 5 7021-8 #### [facility] CLIA [id number] [address] [place] [address] [place] Neutrophils (Bld) [#/Vol] 5.06 10*3/uL Normal 1.45-7.50 [facility] Comment on above: Order Comment: Speci men Type: BLOOD SPECIMEN Ordering Facility: [facility] Address: [address] [place] [address] Performed By: #### 5 7021-8 #### [facility] CLIA [id number] [address] [place] [address] [place] Neutrophils/100 WBC (Bld) 69.5 % Normal [facility] Comment on above: Order Comment: Speci men Type: BLOOD SPECIMEN Ordering Facility: [facility] Address: [address] [place] [address] Performed By: #### 5 7021-8 #### [facility] IA [id number] [address] [place] [address] [place] Nucleated RBC (Bld) [#/Vol] 10*3/uL Normal <0.01 [facility] Comment on above: Order Comment: Speci men Type: BLOOD SPECIMEN Ordering Facility: [facility] Address: [address] [place] [address] Performed By: #### 5 7021-8 #### [facility] IA [id number] [address] [place] [address] [place] Nucleated RBC/100 WBC (Bld) [Ratio] 0.0 /100 WBC Normal [facility] Comment on above: Order Comment: Speci men Type: BLOOD SPECIMEN Ordering Facility: [facility] Address: [address] [place] [address] Performed By: #### 5 7021-8 #### [facility] IA [id number] [address] [place] [id number] [place] Platelet mean volume (Bld) [Entitic vol] 11.2 fL Normal 9.0-12.7 [facility] Comment on above: Order Comment: Speci men Type: BLOOD SPECIMEN Ordering Facility: [facility] Address: [address] [place] [address] Performed By: #### 5 7021-8 #### [facility] CLIA [id number] [address] [place] [address] [place] Platelets (Bld) [#/Vol] 236 10*3/uL Normal 150-400 [facility] Comment on above: Order Comment: Speci men Type: BLOOD SPECIMEN Ordering Facility: [facility] Address: [address] [place] [address] Performed By: #### 5 7021-8 #### [facility] CLIA [id number] [address] [place] [address] [place] RBC (Bld) [#/Vol] 5.18 10*6/uL Normal 3.90-5.20 [facility] Comment on above: Order Comment: Speci men Type: BLOOD SPECIMEN Ordering Facility: [facility] Address: [address] [place] [address] Performed By: #### 5 7021-8 #### [facility] CLIA [id number] [address] [place] [address] [place] WBC (Bld) [#/Vol] 7.28 10*3/uL Normal 3.70-11.00 [facility] Comment on above: Order Comment: Speci men Type: BLOOD SPECIMEN Ordering Facility: [facility] Address: [address] [place] [address] Performed By: #### 5 7021-8 #### [facility] CLIA [id number] [address] [place] [address] [place] [address] SINUS WO IVCONon 03-12-[address] SINUS WO IVCON * * *Final Report* * * DATE OF EXAM: Mar 12 2024 4:06PM [facility] 0488 - CT SINUS WO IVCON / PROCEDURE REASON: Sinusitis, orbital or intracranial complications * * * * Physician Interpretation * * * * EXAMINATION: CT SINUS WO IVCON CLINICAL HISTORY: Available history in [facility] at the time of this dictation - Patient presents to the ED with complaints of LT ear pain, dx with mastoiditis and was placed on oral abx. Patient reports she was sent here for CT and IV abx. Patient denies any fevers or chills. TECHNIQUE: Spiral high resolution axial unenhanced CT images were obtained through the paranasal sinuses with sagittal, coronal reconstructions. MQ: CTSI_1 CT Radiation dose: Integrated Dose-Length Product (DLP) for this visit = 124 mGy*cm. CT Dose Reduction Employed: Automated exposure control(AEC) and iterative recon COMPARISON: None. RESULT: Post-Surgical Findings: None Sinus Chambers: Sinuses are clear. LEFT Kayleigh [place] Score: 0 RIGHT [place] Conchis Score: 0 TOTAL Kayleigh Conchis Score: 0 Nasal Cavities: Visualized nasal cavities are patent. Developmental Anomalies: None Other: The mastoid air cells and middle ear cavities are clear. The visualized mastoid air cells and middle ear cavities are clear. The soft tissues of the face and orbits are within normal limits within the limitations of the study. Localizer images: No significant findings. IMPRESSION: Clear sinuses. Mastoid air cells and middle ear cavities are clear. No abnormal soft tissue thickening or stranding. Rack Loader: [facility] Transcribe Date/Time: Mar 12 2024 4:36P Dictated by : REBEKA VICKERS MD This examination was interpreted and the report reviewed and electronically signed by: REBEKA VICKERS MD on Mar 12 2024 4:40PM EST [id number] [facility] ED NOTEon 03-12-2024 ED NOTE HNO ID: [id number] Author: KEVIN BURNS RN Service: ? Author Type: Registered Nurse Type: ED Notes Filed: 03/12/2024 17:41 Note Text: Patient received written and verbal discharge instructions. Patient verbalizes understanding and all questions were answered. Instructed to follow up with primary care doctor or follow-up doctor. No acute distress noted upon discharge and instructed to come back to emergency room if symptoms worsen. Patient verbalized understanding. All belongings with patient. Patient ambulated with steady gait out of ED. [facility] ED NOTE HNO ID: [id number] Author: AILYN RIOJAS RN Service: Emergency Medicine Author Type: Registered Nurse Type: ED Notes Filed: 03/12/2024 17:09 Note Text: Report given to Emmanuel CLARK. [facility] ED NOTE HNO ID: [id number] Author: AILYN RIOJAS RN Service: Emergency Medicine Author Type: Registered Nurse Type: ED Notes Filed: 03/12/2024 16:49 Note Text: Dr. Lea at bedside for evaluation. [facility] ED NOTE HNO ID: [id number] Author: SAYRA SHAH RN Service: ? Author Type: Registered Nurse Type: ED Notes Filed: 03/12/2024 13:49 Note Text: Patient presents to the ED with complaints of LT ear pain, dx with mastoiditis and was placed on oral abx. Patient reports she was sent here for CT and IV abx. Patient denies any fevers or chills. Plan of care: -Monitor Patient's Vital Signs for changes in condition -Monitor patient for changes in pain -Maintain patient safety and privacy -Provide comfort measures -Call light in place -Siderails up, bed in locked and low position [facility] ED PROV NOTEon 03-12-2024 ED PROV NOTE HNO ID: [id number] Author: ALANA LEA MD Service: Emergency Medicine Author Type: Physician Type: ED Provider Notes Filed: 03/12/2024 17:46 Note Text: ED Provider Note Patient Name: Stephen Thomas : 1950 SERVICE DATE: 03/12/24 History Patient presents with: Earache: Dx with mastoiditis, worsening on oral ABX HPI Stephen Thomas is a 73 year old female with no pertinent past medical history presenting with earache. Patient endorses pain in the posterior regular region of the left ear that started several days ago. She then developed redness that extended around the left ear from the posterior to the preauricular region. She went to urgent care yesterday and was given Augmentin, however had extension of the erythema and pain into the left face throughout the day today. She denies any change in auditory acuity. She denies tinnitus. She has had a headache since Friday, however no focal neurologic symptoms including numbness, weakness, paresthesias, change in vision. She denies any neck pain or neck stiffness. She has never had similar symptoms. She has no history of diabetes or immunocompromise. She denies any erythema elsewhere, however does have concomitant dermatitis which she has had chronically. No fevers reported at home. Chart review: Family practice office visit from yesterday reviewed, patient was seen for left-sided ear pain. There was concern for mastoiditis and the patient was prescribed Augmentin. She was recommended to go to the emergency department, however she declined at that time. No past medical history on file. No past surgical history on file. No family history on file. Social History Tobacco Use - Smoking status: Never - Smokeless tobacco: Never Substance and Sexual Activity - Alcohol use: Yes - Drug use: No - Sexual activity: Not on file ALLERGIES Allergen Reactions - Ciprofloxacin Hives PT STATES SHE IS ALLERGIC TO MANY ANTIBIOTICS-CAN'T RECALL THE NAMES BUT KNOWS SHE IS ABLE TO TAKE SULFA - Keflex [Cephalexin] Rash - Neomycin Rash - Penicillin Rash Review of Systems Constitutional: Negative for fatigue and fever. HENT: Positive for ear pain. Negative for facial swelling, hearing loss, sinus pain and trouble swallowing. Respiratory: Negative for cough and shortness of breath. Cardiovascular: Negative for chest pain. Gastrointestinal: Negative for abdominal pain, diarrhea, nausea and vomiting. Musculoskeletal: Negative for neck pain and neck stiffness. Skin: Positive for rash. Negative for wound. Neurological: Negative for weakness, numbness and headaches. Physical Exam Vitals [03/12/24 1345] BP Pulse Temp Temp src Resp SpO2 Weight Height 142/96 79 36.1 ?C (97 ?F) Oral 16 97 % 63.5 kg (140 lb) -- Physical Exam Constitutional: General: She is not in acute distress. Appearance: She is not ill-appearing, toxic-appearing or diaphoretic. HENT: Head: Normocephalic and atraumatic. Comments: Posterior auricular lymph node palpable and mild tenderness to palpation, there is faint erythema extending from the posterior auricular region to the preauricle region and extending into the face, well-demarcated. There are no overlying bullae. Right Ear: Tympanic membrane, ear canal and external ear normal. Left Ear: Tympanic membrane, ear canal and external ear normal. Nose: Nose normal. Mouth/Throat: Mouth: Mucous membranes are moist. Pharynx: No oropharyngeal exudate or posterior oropharyngeal erythema. Eyes: Extraocular Movements: Extraocular movements intact. Pupils: Pupils are equal, round, and reactive to light. Cardiovascular: Rate and Rhythm: Normal rate and regular rhythm. Pulses: Normal pulses. Heart sounds: No murmur heard. No friction rub. No gallop. Pulmonary: Effort: Pulmonary effort is normal. No respiratory distress. Breath sounds: No wheezing, rhonchi or rales. Abdominal: General: There is no distension. Palpations: Abdomen is soft. Tenderness: There is no abdominal tenderness. There is no guarding or rebound. Musculoskeletal: General: Normal range of motion. Cervical back: Normal range of motion. Skin: General: Skin is warm and dry. Capillary Refill: Capillary refill takes less than 2 seconds. Neurological: Mental Status: She is alert and oriented to person, place, and time. Mental status is at baseline. Cranial Nerves: No cranial nerve deficit. Sensory: No sensory deficit. Motor: No weakness. Diagnostic Testing ED Labs Ordered and Reviewed BASIC METABOLIC PANEL - Normal COMPLETE BLOOD COUNT AND DIFFERENTIAL Procedures ED Course / Clinical Impression ED Course as of 03/12/24 1737 Alana Lea's Documentation FriMar 12, [address] SINUS WO IVCON IMPRESSION: Clear sinuses. Mastoid air cells and middle ear cavities are clear. No abnormal soft tissue thickening or stranding. 1642 CBC + AUTO DIFF: WBC 7.28 RBC 5.18 H (more content not included)... Normal [facility] ED Triage Noteon 03-12-2024 ED Triage Note HNO ID: [id number] Author: NEVA CASEY DO Service: Emergency Medicine Author Type: Physician Type: ED Triage Notes Filed: 03/12/2024 13:52 Note Text: ED INTAKE NOTE Patient Name: Stephen Thomas Service Date: 03/12/24 BRIEF HPI: This is a 73 year old female who presents to the ED with: diagnosed yesterday with mastoiditis. On oral antibiotics 9and getting worse. Was told she needs to come in for CT and IV ATBs. BRIEF EXAM: BP 142/96 Pulse 79 Temp (Src) 97 (Oral) Resp 16 Wt 140 lb (63.5kg) SpO2 97% NAD Awake and Alert Non labored breathing Reports tenderness into left maxillary sinus and behind left ear INITIAL WORKUP AND DECISION MAKING: Orders Placed This Encounter CT SINUS WO IVCON CT TEMP BONES WO IVCON BASIC METABOLIC PANEL CBC + AUTO DIFF Provider examination performed via virtual platform with assistance from bedside clinician. SIGNATURE: Neva Casey DO [facility] ([facility]PL[facility] ) STEPHEN THOMAS ([id number]) 1950 F Date Time Provider Department 03/11/24 11:55 AM MEGA PINEDO EXPLOR During your visit today, we recorded the following information about you: Temperature Pulse Blood pressure 97.9 degrees 79/minute 149/78 Mega Pinedo PA-C 03/11/2024 12:40 PM Signed HPI: Stephen Thomas is a 73 year old female with the below medical history here today for left-sided ear pain. Patient states she noticed something starting on Friday. Said then she noticed some lymph node developing. She noticed some redness and warmth to the area around the ear. Denies any fever chills or bodyaches. No past medical history on file. Medications: amoxicillin-clavulanat e potassium (AUGMENTIN) 875-125 mg per tablet Take 1 tablet by mouth every 12 hours for 10 days. ibuprofen (MOTRIN) 800 mg tablet Take 1 tablet by mouth every 8 hours as needed for pain. No past surgical history on file. Review of Systems: All systems negative unless stated above in HPI. Vital Signs: BP 149/78 Pulse 79 Temp 36.6 ?C (97.9 ?F) (Temporal) SpO2 97% Physical Exam: General: Vitals noted, no distress. Afebrile. EENT: Left TM is unremarkable. Right TM is unremarkable. EACs unremarkable. Mildly tender over the left mastoid. Eyes unremarkable. Posterior oropharynx unremarkable. No peritonsillar abscess. No retropharyngeal mass. Neck: Supple. No meningismus through full range of motion. No anterior or posterior cervical lymphadenopathy. Cardiac: Regular, rate, rhythm, no murmur. Pulmonary: Lungs clear bilaterally with good aeration. No adventitious breath sounds. Abdomen: Soft, nontender, nonsurgical. No peritoneal signs. Normoactive bowel sounds. Extremities: No peripheral edema. Skin: No rash. Neuro: No focal neurologic deficits. Medical Decision-Making: Well-appearing 73-year-old female no current medical problems chief complaint today of left-sided earache. On exam patient has tenderness to palpation over the mastoid. She has some erythema and warmth surrounding the ear as well as the external ear. Does not appear like blatant cellulitis but concern for mastoiditis. Discussed at length for 20 minutes about going to the emergency room for CT scan IAC as well as IV antibiotics. She did not want to go to the emergency room at this point. I did prescribe Augmentin. Discussed allergies. She said she might have gotten a rash last time with amoxicillin but does not quite remember. I advised her to take a Benadryl with this. Discussed all reasons to go directly to emergency room. As of now her vital signs are unremarkable with a pulse of 79 with temperature 36.6. She was agreeable to discharge. Low threshold for going to emergency room. No AMA. Differential Diagnosis: Is extensive but includes otitis media/externa, serous otitis, TM perforation, viral URI, etc. Summary: History and exam as above. Will be home going with ASSESSMENT/PLAN: 1. Mastoiditis of left side - ICD9: 383.9, ICD10: H70.92 - AMOXICILLIN 875 MG-POTASSIUM CLAVULANATE 125 MG TABLET - IBUPROFEN 800 MG TABLET Mega Pinedo PA-C ' Allergies As of Date: 03/11/2024 (Not on File) Date Reviewed: 03/11/2024 Reviewed by: Shawna Sánchez - Fully Assessed Reason for Visit: Ear Pain [817] Cmt: Left ear swollen and itchy X Friday Primary Visit Diagnosis:Mastoiditis of left side [H70.92] Order(s):amoxicillin-c lavulanate potassium (AUGMENTIN) 875-125 mg per tabletTake 1 tablet by mouth every 12 hours for 10 days.Disp: 20 tabletRfl: 0 ibuprofen (MOTRIN) 800 mg tabletTake 1 tablet by mouth every 8 hours as needed for pain.Disp: 20 tabletRfl: 0 Prescriptions as of 03/11/2024 - amoxicillin-clavulanat e potassium (AUGMENTIN) 875-125 mg per tablet Take 1 tablet by mouth every 12 hours for 10 days. - ibuprofen (MOTRIN) 800 mg tablet Take 1 tablet by mouth every 8 hours as needed for pain. Problem List As Of Date: 03/11/2024 (None) Prescriptions ordered this encounter Disp Refills Start End AMOXICILLIN 875 MG-POTASSIUM CLAVULA* 20 t* 0 03/11/2024 03/21/2024 Route: ORAL Sig: Take 1 tablet by mouth every 12 hours for 10 days. IBUPROFEN 800 MG TABLET 20 t* 0 03/11/2024 Route: ORAL Sig: Take 1 tablet by mouth every 8 hours as needed for pain. Encounter Status:Closed by MEGA PINEDO on 03/11/24 [facility] CNOVon 08-01-2023 CNOV Office Visit (EXPLOR ) STEPHEN THOMAS ([id number]) 1950 F Date Time Provider Department 08/01/23 3:35 PM TYLER RUSSELL During your visit today, we recorded the following information about you: Temperature Pulse Blood pressure 97.7 degrees 60/minute 130/80 Tyler Russell APRN.PREPARATION DEPARTMENT SUPERVISOR 08/01/2023 4:32 PM Addendum This note was created using NoteWriter. Subjective Stephen Thomas is a 72 year old female who presents to [facility] with cc right knee discoloration noticed yesterday. No trauma. No pain. She noticed after her shower that her knee appeared discolored. She does have a hx of eczema. No itching. No otcs tried. Review of Systems Constitutional: Negative for activity change, appetite change, chills, diaphoresis, fatigue and fever. Respiratory: Negative for cough and shortness of breath. Cardiovascular: Negative for chest pain, palpitations and leg swelling. Musculoskeletal: Negative for arthralgias, joint swelling and myalgias. Skin: Positive for color change and rash. Neurological: Negative for weakness and numbness. Objective BP 130/80 (BP Site: Left Arm, BP Position: Sitting, BP Cuff Size: Regular Adult) Pulse 60 Temp 36.5 ?C (97.7 ?F) (Temporal) SpO2 98% Physical Exam Vitals and nursing note reviewed. Constitutional: General: She is not in acute distress. Appearance: Normal appearance. She is not ill-appearing or toxic-appearing. HENT: Head: Normocephalic and atraumatic. Cardiovascular: Pulses: Normal pulses. Pulmonary: Effort: Pulmonary effort is normal. Musculoskeletal: Right knee: No bony tenderness. Normal range of motion. No LCL laxity, MCL laxity, ACL laxity or PCL laxity. Normal pulse. Right lower leg: No swelling, tenderness or bony tenderness. Skin: General: Skin is warm and dry. Capillary Refill: Capillary refill takes less than 2 seconds. Findings: No bruising. Comments: Anterior right knee with faint hyperpigmentation and overall dry skin. No erythema and/or edema. Not tender to touch. No increase in warmth. No drainage. Knee with FAROM without pain. Normal gait. Neurological: General: No focal deficit present. Mental Status: She is alert and oriented to person, place, and time. Sensory: Sensation is intact. Motor: Motor function is intact. Coordination: Coordination is intact. Gait: Gait is intact. Deep Tendon Reflexes: Reflexes are normal and symmetric. Psychiatric: Mood and Affect: Mood normal. Behavior: Behavior normal. Thought Content: Thought content normal. Judgment: Judgment normal. ASSESSMENT/PLAN: 1. Discoloration of skin - ICD9: 709.00, ICD10: L81.9 (primary diagnosis) Suspect hyperpigmentation due to eczema flare Advised moisturizing - TRIAMCINOLONE ACETONIDE 0.1 % TOPICAL CREAM - use sparingly - Watch for worsening symptoms, including: ?The pain worsens rather than improves over 24 hours ?There is increasing redness or swelling of the area ?A red streak develops ?Pus is present ?There is fever - If any of these occur, seek further medical attention 2. Atopic dermatitis, unspecified type - ICD9: 691.8, ICD10: L20.9 - Use mild soap like Dove, Aveeno or Cetaphil - limit shower/bath to less than 15 minutes with warm, not hot, water - BID use of recommended emollients such as Cetaphil, Eucerin Plus, Aveeno, Aquaphor - TRIAMCINOLONE ACETONIDE 0.1 % TOPICAL CREAM Reviewed diagnosis and treatment options/plan with patient. The patient verbalized understanding and intent to comply with treatment. Follow-up instructions were given to the patient; they are to call their primary care provider if symptoms worsen or do not improve in 3-4 days. Specific signs and symptoms that would indicate the need for higher level of care were discussed in detail warranting prompt ER evaluation. The patient denied further concerns/questions at the end of the visit. Tyler Russell APRN.CNP Allergies As of Date: 08/01/2023 Noted Allergy Reaction CIPROFLOXACIN 08/25/2015 4 - Hives Comments: PT STATES SHE IS ALLERGIC TO MANY ANTIBIOTICS-CAN'T RECALL THE NAMES BUT KNOWS SHE IS ABLE TO TAKE SULFA KEFLEX (CEPHALEXIN) 11/25/2016 2 - Rash NEOMYCIN 12/05/2016 2 - Rash PENICILLIN 12/05/2016 2 - Rash Date Reviewed: 08/01/2023 Reviewed by: Tyler Russell APRN.PREPARATION DEPARTMENT SUPERVISOR - Fully Assessed Reason for Visit: Musculoskeletal Problem [69] Cmt: Knee red, right, noticed last night. Primary Visit Diagnosis:Discoloratio n of skin [L81.9] Other Visit Diagnosis:Atopic dermatitis, unspecified type [L20.9] Order(s):triamcinolone acetonide (KENALOG) 0.1 % creamApply to affected area two times a day as needed.Disp: 453.6 gRfl: 0 Prescriptions as of 08/01/2023 - triamcinolone acetonide (KENALOG) 0.1 % cream Apply to affected area two times a day as needed. - EPINEPHrine (EPIPEN 2-PARIS) 0.3 mg/0.3 mL auto-injector Inject 0.3 (more content not included)... Normal [facility] B Natriuretic Peptideon 03-0 Natriuretic peptide B mass conc (Bld) 156 pg/mL Abnormal <100 [facility] Comment on above: Performed By: #### 1 [id number] #### [place] [address] [place] [address] CBC With Differentialon 03-0 -2018 Basophils #/vol (Bld) 0.03 10*3/uL Normal 0.01-0.07 [facility] Comment on above: Performed By: #### 2 [id number] #### [place] [address] [place] [address] Basophils/100 WBC (Bld) 0.2 % Normal 0.1-1.2 [facility] Comment on above: Performed By: #### 2 [id number] #### [place] [address] [place] [address] Eosinophils #/vol (Bld) 0.00 10*3/uL Low 0.04-0.50 [facility] Comment on above: Performed By: #### 2 [id number] #### [place] [address] [place] [address] Eosinophils/100 WBC (Bld) 0.0 % Normal 0.0-8.1 [facility] Comment on above: Performed By: #### 2 [id number] #### [place] [address] [place] [address] Erythrocyte distribution width Ratio (RBC) 13.8 % Normal 12.0-15.4 [facility] Comment on above: Performed By: #### 2 [id number] #### [place] [address] [place] [address] Hematocrit Volume Fraction (Bld) 44.3 % Normal 36.5-46.6 [facility] Comment on above: Performed By: #### 2 [id number] #### [place] [address] [place] [address] Hemoglobin mass conc (Bld) 13.9 g/dL Normal 11.8-15.3 [facility] Comment on above: Performed By: #### 2 [id number] #### [place] [address] [place] [address] Imm Grans Absolute 0.04 10*3/uL Normal [facility] Comment on above: Performed By: #### 2 [id number] #### [place] [address] [place] [address] Immature granulocytes #/vol (Bld) 0.3 % Normal [facility] Comment on above: Performed By: #### 2 [id number] #### [place] [address] [place] [address] [place] [address] Lymphocytes #/vol (Bld) 1.40 10*3/uL Normal 0.40-2.84 [facility] Comment on above: Performed By: #### 2 [id number] #### [place] [address] [place] [address] Lymphocytes/100 WBC (Bld) 10.8 % Low 15.7-50.5 [facility] Comment on above: Performed By: #### 2 [id number] #### [place] [address] [place] [address] MCH Entitic mass (RBC) 27.3 pg Low 27.5-33.0 [facility] Comment on above: Performed By: #### 2 [id number] #### [place] [address] [place] [address] MCHC mass conc (RBC) 31.4 g/dL Normal 30.1-35.0 [facility] Comment on above: Performed By: #### 2 [id number] #### [place] [address] [place] [address] MCV Entitic volume (RBC) 87.0 fL Normal 85.4-100.0 [facility] Comment on above: Performed By: #### 2 [id number] #### [place] [address] [place] [address] Monocytes #/vol (Bld) 1.00 10*3/uL High 0.25-0.83 [facility] Comment on above: Performed By: #### 2 [id number] #### [place] [address] [place] [address] Monocytes/100 WBC (Bld) 7.7 % Normal 4.8-12.7 [facility] Comment on above: Performed By: #### 2 [id number] #### [place] [address] [place] [address] Neutrophils Absolute 10.48 10*3/uL High 1.95-6.85 [facility] Comment on above: Performed By: #### 2 [id number] #### [place] [address] [place] [address] Neutrophils/100 WBC (Bld) 81.0 % High 36.8-73.2 [facility] Comment on above: Performed By: #### 2 [id number] #### [place] [address] [place] [address] Platelet mean volume Entitic volume (Bld) 10.4 fL Normal 9.9-12.1 [facility] Comment on above: Performed By: #### 2 [id number] #### [place] [address] [place] [address] Platelets #/vol (Bld) 246 10*3/uL Normal 155-404 [facility] Comment on above: Performed By: #### 2 [id number] #### [place] [address] [place] [address] RBC #/vol (Bld) 5.09 10*6/uL Normal 3.85-5.10 [facility] Comment on above: Performed By: #### 2 [id number] #### [place] [address] [place] [address] RDW SD 44.4 fL Normal 39.3-48.6 [facility] Comment on above: Performed By: #### 2 [id number] #### [place] [address] [place] [address] WBC #/vol (Bld) 13.0 10*3/uL High 4.4-9.9 [facility] Comment on above: Performed By: #### 2 [id number] #### [place] [address] [place] [address] CHEST 2 VIEWon 10-03-2018 CHEST 2 VIEW DATE OF EXAM: Oct 03 2018 5:46PM CLINICAL HISTORY/ Patient Name: STEPHEN THOMAS STUDY: CHEST 2 VIEW; 10/03/2018 5:46 pm INDICATION: Pain. COMPARISON: None ACCESSION NUMBER(S): [id number] ORDERING CLINICIAN: LUCÍA MORILLO FINDINGS: The cardiac silhouette size is within normal limits. There is no focal consolidation, edema or pneumothorax. No sizeable pleural effusion. No acute osseous abnormality. CONCLUSION: IMPRESSION: No radiographic evidence of acute cardiopulmonary process. Normal [facility] Comprehensive Metabolic Pane cira 10-03-2018 Albumin mass conc 4.6 g/dL Normal 3.4-5.0 [facility] Comment on above: Performed By: #### 1 [id number] #### [place] [address] [place] [address] Albumin/Globulin mass ratio 1.8 {ratio} Normal 0.9-2.4 [facility] Comment on above: Performed By: #### 1 [id number] #### [place] [address] [place] [address] ALP enzyme act/vol 78 U/L Normal 45-117 [facility] Comment on above: Performed By: #### 1 [id number] #### [place] [address] [place] [address] ALT enzyme act/vol 23 U/L Normal 7-45 [facility] Comment on above: Performed By: #### 1 [id number] #### [place] [address] [place] [address] Anion gap molar conc 10 mmol/L Normal 10-20 [facility] Comment on above: Performed By: #### 1 [id number] #### [place] [address] [place] [address] AST enzyme act/vol 19 U/L Normal 13-39 [facility] Comment on above: Performed By: #### 1 [id number] #### [place] [address] [place] [address] Bilirubin mass conc 0.5 mg/dL Normal 0.0-1.2 [facility] Comment on above: Performed By: #### 1 [id number] #### [place] [address] [place] [address] Calcium mass conc 9.5 mg/dL Normal 8.6-10.3 [facility] Comment on above: Performed By: #### 1 [id number] #### [place] [address] [place] [address] Chloride molar conc 103 mmol/L Normal 98-107 [facility] [facility] Comment on above: Performed By: #### 1 [id number] #### [place] [address] [place] [address] Creatinine mass conc 1.00 mg/dL Normal 0.50-1.05 [facility] Comment on above: Performed By: #### 1 [id number] #### [place] [address] [place] [address] GFR/1.73 sq M.predicted MDRD vol rate/area 55 mL/min/{1.73_m2} Normal [facility] Comment on above: Result Comment: Inte rpretation for Chronic Kidney Disease: Stages 1&2 >60 Healthy or potential kidney damage. Mild decrease of GFR. Stage 3 30-59 Moderate decrease of GFR. Stage 4 15-29 Severe decrease of GFR. Stage 5 <15 Kidney failure or on dialysis. Performed By: #### 1 [id number] #### [place] [address] [place] [address] Glucose mass conc 86 mg/dL Normal 70-100 [facility] Comment on above: Performed By: #### 1 [id number] #### [place] [address] [place] [address] HCO3 molar conc (Bld) 29 mmol/L Normal 21-32 [facility] Comment on above: Performed By: #### 1 [id number] #### [place] [address] [place] [address] Potassium molar conc 3.4 mmol/L Low 3.5-5.1 [facility] Comment on above: Performed By: #### 1 [id number] #### [place] [address] [place] [address] Protein mass conc 7.2 g/dL Normal 6.4-8.2 [facility] Comment on above: Performed By: #### 1 [id number] #### [place] [address] [place] [address] Sodium molar conc 139 mmol/L Normal 136-145 [facility] Comment on above: Performed By: #### 1 [id number] #### [place] [address] [place] [address] Urea nitrogen mass conc 22 mg/dL Normal 6-23 [facility] Comment on above: Performed By: #### 1 [id number] #### [place] [address] [place] [address] Urea nitrogen/Creatinine mass ratio 22 mg/mg Normal 5-25 [facility] Comment on above: Performed By: #### 1 [id number] #### [place] [address] [place] [address] Culture, Blood Bacterialon 0 10-03-2018 Culture, Blood Bacterial BILL#: [id number] : 48 AGE: SEX: [place] CASTREJON SOURCE: Blood COLLECTED: 10/03/18 17:01 ANTIBIOTICS AT MARBIN.: RECEIVED : 10/04/18 00:07 SITE: SAME SOURCE R E S U L T S BLOOD CULTURE, BACTERIAL FINAL 10/09/18 05:42 No Growth at 1 days No Growth at 2 days No Growth at 3 days NO GROWTH - FINAL REPORT Normal [facility] Comment on above: Performed By: #### D DIMR #### [place] [address] [place] [address] Culture, Blood Bacterial BILL#: [id number] : 48 AGE: SEX: F LUCÍA SOURCE: Blood COLLECTED: 10/03/18 17:00 ANTIBIOTICS AT MARBIN.: RECEIVED : 10/04/18 00:07 SITE: SAME SOURCE R E S U L T S BLOOD CULTURE, BACTERIAL FINAL 10/09/18 05:42 No Growth at 1 days No Growth at 2 days No Growth at 3 days NO GROWTH - FINAL REPORT Normal [facility] Comment on above: Performed By: #### D DIMR #### [place] [address] [place] [address] Culture, Urine Bacterialon 0 10-03-2018 Culture, Urine Bacterial BILL#: [id number] : 48 AGE: SEX: [place] CASTREJON SOURCE: URINE COLLECTED: 10/03/18 16:51 ANTIBIOTICS AT MARBIN.: RECEIVED : 10/04/18 21:55 SITE: Unspecified R E S U L T S URINE CULTURE,BACTERIAL FINAL 10/05/18 15:02 NO GROWTH Normal [facility] Comment on above: Performed By: #### D DIMR #### [place] [address] [place] [address] D Dimeron 10-03-2018 D Dimer 421 ng/mL FEU Normal =500 [facility] are Comment on above: Result Comment: NOTE NEW REFERENCE RANGE AND UNITS OF 09/04/2017 The VTE Exclusion D-dimer assay is reported in ng/mL Fibrinogen Equivalent Units (FEU). This assay is indicated for use in conjunction with the Guidelines for Emergency Department Use of the VTE Exclusion D-Dimer clinical pretest probability assessment model to exclude deep vein thrombosis (DVT) and pulmonary embolism (PE) disease in outpatients suspected of DVT or PE. Per coordinate measuring machine technician's instructions for use, a value of less than 500 ng/mL (FEU) may help to exclude DVT and/or PE in outpatients when the assay is used with a clinical pretest probability assessment. Performed By: #### D DIMR #### [place] [address] [place] [address] Lactic Acidon 10-03-2018 Lactate molar conc 1.30 mmol/L Normal 0.40-2.00 [facility] Comment on above: Performed By: #### 1 [id number] #### [place] [address] [place] [address] Lipaseon 10-03-2018 Lipase enzyme act/vol 22 U/L Normal 9-82 [facility] Comment on above: Performed By: #### 1 [id number] #### [place] [address] [place] [address] Prothrombin Timeon 9 INR Coag RelTime (PPP) 1.02 {INR} Normal 0.90-1.10 [facility] Comment on above: Performed By: #### 3 [id number] #### [place] [address] [place] [address] Prothrombin time (PT) Coag time (PPP) 11.2 s Normal 9.7-12.7 [facility] Comment on above: Result Comment: PLEA SE NOTE NEW REFERENCE RANGE EFFECTIVE 2018 Performed By: #### 3 [id number] #### [place] [address] [place] [address] Troponinon 10-03-2018 Troponin I.cardiac mass conc ng/mL Normal 0.00-0.04 [facility] Comment on above: Result Comment: <0.0 4 : Negative 0.04 - 0.50 : Possible Cardiac Damage >0.50 : Consistent with Cardiac Damage Performed By: #### 1 [id number] #### [place] [address] [place] [address] Urinalysis with Reflex Cultu reon 10-03-2018 Appearance Nom (U) Clear Normal Clear [facility] Comment on above: Performed By: #### U ARFX #### [place] [address] [place] [address] Ascorbic Acid Negative Normal Negative [facility] are Comment on above: Performed By: #### U ARFX #### [place] [address] [place] [address] Bacteria LM.HPF #/area (Urine sed) Occasional Normal None [facility] Comment on above: Performed By: #### U ARFX #### [place] [address] [place] [address] Bilirubin mass conc Negative Normal Negative [facility] Comment on above: Performed By: #### U ARFX #### [place] [address] [place] [address] Blood Negative Normal Negative [facility] Comment on above: Performed By: #### U ARFX #### [place] [address] [place] [address] Color Nom (U) Colorless Normal [facility] are Comment on above: Performed By: #### U ARFX #### [place] [address] [place] [address] Epithelial cells.squamous LM.HPF #/area (Urine sed) Rare Normal Few [facility] Comment on above: Performed By: #### U ARFX #### [place] [address] [place] [address] Glucose mass conc Negative Normal Negative [facility] Comment on above: Performed By: #### U ARFX #### [place] [address] [place] [address] Ketones Ql (U) Negative Normal Negative [facility] care Comment on above: Performed By: #### U ARFX #### [place] [address] [place] [address] Leukocytes Esterase Small Abnormal Negative [facility] Comment on above: Performed By: #### U ARFX #### [place] [address] [place] [address] Nitrite Ql (U) Negative Normal Negative [facility] care Comment on above: Performed By: #### U ARFX #### [place] [address] [place] [address] pH (Bld) 7.0 Normal 5.0-9.0 [facility] Comment on above: Performed By: #### U ARFX #### [place] [address] [place] [address] Protein mass conc (U) Negative Normal Negative [facility] Comment on above: Performed By: #### U ARFX #### [place] [address] [place] [address] Specific gravity Relative Density (U) 1.003 Normal 1.003-1.035 [facility] Comment on above: Performed By: #### U ARFX #### [place] [address] [place] [address] Urine Microscopic Performed Normal [facility] Comment on above: Performed By: #### U ARFX #### [place] [address] [place] [address] Urobilinogen Qn (U) <2.0 Normal Negative [facility] Comment on above: Result Comment: Due to a manufacturing issue, low positive urobilinogen results may be falsely positive. Correlate with urine bilirubin and additional clinical/laboratory findings to assess the risk of hemolytic anemia or liver disease. If clinically indicated, repeat testing with an alternate method is available by contacting the laboratory within 24 hours. Performed By: #### U ARFX #### [place] [address] [place] [address] WBC #/vol (Bld) 0-4 Normal 0-5 [facility] Comment on above: Performed By: #### U ARFX #### [place] [address] [place] [address] Vital Signs Date Time Vital Sign Value Performing Clinician Artie schmid 03-17-2024 08:57-0400 Body mass index (BMI) [Ratio] 25.57 kg/m2 Aditya Aaron APRN.CNP Work Phone: [facility] 03-17-2024 08:57-0400 Body temperature 97.81 [degF] Aditya Aaron APRN.CNP Work Phone: [facility] 03-17-2024 08:57-0400 Body weight 62.4 kg Aditya Aaron APRN.CNP Work Phone: [facility] 03-17-2024 08:57-0400 Diastolic blood pressure 74 mm[Hg] Aditya Aaron LODGE SALES ASSOCIATE.PREPARATION DEPARTMENT SUPERVISOR Work Phone: [facility] 03-17-2024 08:57-0400 Heart rate 62 /min Aditya Aaron LODGE SALES ASSOCIATE.PREPARATION DEPARTMENT SUPERVISOR Work Phone: [facility] 03-17-2024 08:57-0400 SaO2% (BldA) [Mass fraction] 98 % Aditya Aaron LODGE SALES ASSOCIATE.PREPARATION DEPARTMENT SUPERVISOR Work Phone: [facility] 03-17-2024 08:57-0400 Systolic blood pressure 116 mm[Hg] Aditya Aaron LODGE SALES ASSOCIATE.PREPARATION DEPARTMENT SUPERVISOR Work Phone: [facility] 03-11-2024 12:08-0400 Body temperature 97.9 [degF] Mega DU-Matthew Work Phone: [facility] 03-11-2024 12:08-0400 Diastolic blood pressure 78 mm[Hg] Mega Pinedo PA-C Work Phone: [facility] 03-11-2024 12:08-0400 Heart rate 79 /min Mega Pinedo PA-C Work Phone: [facility] 03-11-2024 12:08-0400 SaO2% (BldA) [Mass fraction] 97 % Mega DU-Matthew Work Phone: [facility] 03-11-2024 12:08-0400 Systolic blood pressure 149 mm[Hg] Mega Pinedo PA-C Work Phone: [facility] Encounters Encounter Date Encounter Type Care Provider Facility Start: 04-02-2024 End: 04-02-2024 ambulatory Madison Margi MA [facility] [address] [place] Start: 04-02-2024 End: 04-02-2024 Patient encounter procedure Madison Messershire MARSHA [facility] Comment on above: Population Health Na vigation Outreach ([facility] NO PCP LIST/) Start: 03-17-2024 End: 03-17-2024 ambulatory ADITYA AARON Facility:[facility] Start: 03-17-2024 End: 03-17-2024 Patient encounter procedure Aditya Aaron LODGE SALES ASSOCIATE.PREPARATION DEPARTMENT SUPERVISOR Work Phone: [facility] Comment on above: Erysipelas (Primary Dx); Lymphadenopathy; Facial erythema; Encounter for screening mammogram for breast cancer Start: 03-11-2024 End: 03-11-2024 ambulatory MEGA PINEDO Facility:[facility] Start: 03-11-2024 End: 03-11-2024 Patient encounter procedure Mega Pinedo PA-C Work Phone: [facility] Comment on above: Mastoiditis of left side (Primary Dx) Start: 08-01-2023 End: 08-01-2023 ambulatory ADITYA AARON Facility:[facility] Start: 10-03-2018 End: 10-03-2018 Emergency department patient visit LUCÍA DAVILAANDRES Facility:[id number] Start: 10-03-2018 Patient encounter procedure Facility:[id number] Start: 10-01-2018 End: 10-01-2018 Emergency department patient visit YOLANDABRIAN ADDISON Facility:[id number] Plan of Treatment Date Care Activity Detail Author Start: 03-12-2027 Diabetes Screening Diabetes Screenin g [facility] Start: 07-08-2024 End: 07-08-2024 Patient encounter procedure 07/08/2024 10:50 AM EST Appointment Mammography [address] [place], [place] [id number] Encounter for screening mammogram for breast cancer [Z12.31] Mammography Comment on above: Encounter for screen ing mammogram for breast cancer [Z12.31] Start: 04-15-2024 End: 04-15-2024 Patient encounter procedure [facility] Comment on above: Medicare Wellness Medicare Wellness/es t care Start: 04-04-2024 Influenza vaccination Influenza Vacc ine (#1) [facility] Start: 08-04-2023 Advance Directive Discussion Advance Directive Discussion [facility] Start: 04-04-2023 Covid-19 Vaccine ( season) Covid-19 Vaccine ( season) [facility] Start: 2014 Pneumococcal Vaccine : 65+ (1 of 1 - PCV) Pneumococcal Vaccine: 65+ (1 of 1 - PCV) [facility] Start: 2014 Screening for osteoporosis Bone Density Screening [facility] Start: 2009 RSV Vaccine (1 - 1-d ose 60+ series) RSV Vaccine (1 - 1-dose 60+ series) [facility] Start: 1999 Shingrix Vaccine (1 of 2) Shingrix Vaccine (1 of 2) [facility] Start: 1994 Diabetes Screening Diabetes Screenin g [facility] Start: 1994 Lipid panel Lipid Screening [facility] Start: 1994 Screening for malign ant neoplasm of colon [facility] Start: 1989 Screening for malign ant neoplasm of breast Mammogram Screening [facility] Start: 1968 Urine microalbumin profile DTaP,Tdap,Td Vaccine (1 - Tdap) [facility] Start: 1967 Anxiety Screening Anxiety Screening [facility] Start: 1967 Depression Screening Depression Scre ening [facility] Start: 1967 Hepatitis C screening Hepatitis C Sc geovanna [facility] End: 04-16-2025 DBT Breast - bilateral screening [facility] Routine Encounter for screening mammogram for breast cancer 1 Occurrences starting 03/17/2024 until 04/16/2025 [facility] Work Phone: Comment on above: 1 Occurrences starti ng 03/17/2024 until 04/16/2025 Payers Date Payer Category Payer Medicare UHC AARP MEDICAR E [facility] AAR MEDICARE O [id number] 2023-Present [phone] [address] [address] [place] [address] HMO [id number] 2019 Medicare [id number] 1950 Unknown [id number] 1950 Unknown [id number] 1950 Unknown [id number] Unknown [id number] Worker's Compensation [id number] Worker's Compensation [id number] Social History Date Type Detail Facility [facility] consumption unknown [facility] Start: 1950 Sex Assigned At Not on file [facility] Start: 08-06-2023 End: 03-17-2024 Gender identity Not on file [facility] Start: 03-17-2024 Tobacco smoking stat [facility] Never smoked tobacco [facility] Start: 03-17-2024 Tobacco use and exposure Smokeless t obacco non-user [facility] Start: 03-17-2024 Alcohol intake Current drinke r of alcohol (finding) [facility] Start: 08-06-2023 End: 03-17-2024 History of Social function [facility] National Score (1-10 0), lower number is lower risk 80 [facility] Clinical Notes 08-01-2023 to 04-02-2024 Madison Kiser MA - 04/02/2024 1:09 PM Aditya Graham, LODGE SALES ASSOCIATE.PREPARATION DEPARTMENT SUPERVISOR - 03/16/2024 12:51 PM Mega Harvey PA-C - 03/11/2024 12:37 PM EDT Note Date & Type Note Facility 04-02-2024 Note HNO ID: [id number] Author: MADISON KISER MA Service: ? Author Type: Tile Shader Type: Progress Notes Filed: 04/02/2024 13:10 Note Text: POPULATION HEALTH NAVIGATION OUTREACH Action/FYI Patient has AWV scheduled with Jose Terry MD. Updated pcp field. Reason for Outreach Care Gap/HCC or Scheduling Wellness Visits Care Gaps due: N/A Patient Contacted: Unable or unnecessary to reach patient: PCP field updated Navigation Signature: Madison Kiser MA April 02, 2024 1:09 PM [facility] 04-02-2024 History of Present illness Narrative POPULATION HEALTH NAVIGATION OUTREACH Action/FYI Patient has AWV scheduled with Jose Terry MD. Updated pcp field. Reason for Outreach Care Gap/HCC or Scheduling Wellness Visits Care Gaps due: N/A Patient Contacted: Unable or unnecessary to reach patient: PCP field updated Navigation Signature: Madison Kiser MA April 02, 2024 1:09 PM documented in this encounter [facility] 04-02-2024 Note Patient Outreach (NE TNAV) STEPHEN THOMAS ([id number]) 1950 F Date Time Provider Department 04/02/24 MARGI MADISONLIZBET KOHLER During your visit today, we recorded the following information about you: Madison Kiser MA 04/02/2024 1:10 PM Signed POPULATION HEALTH NAVIGATION OUTREACH Action/FYI Patient has AWV scheduled with Jose Terry MD. Updated pcp field. Reason for Outreach Care Gap/HCC or Scheduling Wellness Visits Care Gaps due: N/A Patient Contacted: Unable or unnecessary to reach patient: PCP field updated Navigation Signature: Madison Kiser MA April 02, 2024 1:09 PM Allergies As of Date: 04/02/2024 Noted Allergy Reaction CIPROFLOXACIN 08/25/2015 4 - Hives Comments: PT STATES SHE IS ALLERGIC TO MANY ANTIBIOTICS-CAN'T RECALL THE NAMES BUT KNOWS SHE IS ABLE TO TAKE SULFA KEFLEX (CEPHALEXIN) 11/25/2016 2 - Rash NEOMYCIN 12/05/2016 2 - Rash PENICILLIN 12/05/2016 2 - Rash Date Reviewed: 03/12/2024 Reviewed by: Sayra Sahh RN - Fully Assessed Reason for Visit: Population Health Navigation Outreach [3910] Cmt: [facility] NO PCP LIST Prescriptions as of 04/02/2024 - ibuprofen (MOTRIN) 800 mg tablet Take 1 tablet by mouth every 8 hours as needed for pain. - triamcinolone acetonide (KENALOG) 0.1 % cream Apply to affected area two times a day as needed. - EPINEPHrine (EPIPEN 2-PARIS) 0.3 mg/0.3 mL auto-injector Inject 0.3 mL intramuscularly as needed. Problem List As Of Date 04/02/2024 Noted Resolved Contusion of left knee [S80.02XA] 08/25/2015 Encounter Status:Closed by MADISON KISER on 04/02/24 [facility] 03-16-2024 Note HNO ID: [id number] Author: ADITYA AARON APRN.PREPARATION DEPARTMENT SUPERVISOR Service: ? Author Type: Nurse Practitioner Type: Progress Notes Filed: 03/17/2024 09:48 Note Text: CC:ED follow up S:seen at [place] [facility] 03/12/24 See summary below: ED Course as of 03/12/24 1737 Alana Lea's Documentation FriMar 12, [address] SINUS WO IVCON IMPRESSION: Clear sinuses. Mastoid air cells and middle ear cavities are clear. No abnormal soft tissue thickening or stranding. 1642 CBC + AUTO DIFF: WBC 7.28 RBC 5.18 Hemoglobin 14.4 Hematocrit 45.4 MCV 87.6 MCH 27.8 MCHC 31.7 RDW-CV 13.5 Platelet Count 236 MPV 11.2 Neut% 69.5 Abs Neut (ANC) 5.06 Lymph% 18.3 Abs Lymph 1.33 Loudoun% 11.1 Abs Loudoun 0.81 Eosin% 0.0 Abs Eosin <0.03 Baso% 0.7 Abs Baso 0.05 Immature Gran % 0.4 IMMATURE GRANS (ABS) 0.03 NRBC 0.0 Absolute nRBC <0.01 DTYPE Auto I have personally reviewed and interpreted the above laboratory study. Findings: No leukocytosis, anemia, quantitative platelet abnormalities 1642 BASIC METABOLIC PANEL: Glucose 81 BUN 19 Creatinine 0.94 Sodium 140 Potassium 4.7 Chloride 102 CO2 28 Anion Gap 10 Calcium 9.8 eGFR 64 I have personally reviewed and interpreted the above laboratory study. Findings: No clinically significant renal or electrolyte abnormalities Clinical Impressions as of 03/12/24 1737 Erysipelas Lymphadenopathy Facial erythema MDM / Disposition / Plan On evaluation, the patient does have left-sided posterior auricular lymphadenopathy associated with erythema that extends to the preauricular region and involves the face. The erythema is very mild at this time. There is no rash elsewhere to suggest systemic infection. Patient is afebrile and hemodynamically stable in the emergency department. No evidence of acute otitis media identified on physical exam. No evidence of otitis externa. Patient has no headache and no focal neurologic symptoms. Laboratory studies without any acute clinically significant laboratory abnormalities. CT demonstrating no evidence of mastoiditis at this time. Given the clinical history and progression of symptoms, most likely erysipelas at this time. Low suspicion for deep space or NET FISHER infection at this time. Patient was previously prescribed Augmentin and has been tolerating it for 1 dose. She requested potentially changing antibiotics due to prior intolerance of Augmentin causing rash previously. We discussed potential to change to clindamycin, however risk and benefits of changing antibiotics were discussed and patient elected to continue Augmentin at this time. Ele is reestablishing care today, she was last seen for acute problems in 2019 and has not had any medical health care since that time. She is taking the Augmentin as directed and has had significant improvement. Resolution of redness and swelling, there is no further pain or swollen lymph nodes.. Taking Benadryl which she has had a prior history of a rash with penicillin. She denies any chronic medical problems. Hobbies include sewing and playing cards. O:BP 116/74 Pulse 62 Temp 36.6 ?C (97.8 ?F) Wt 62.4 kg (137 lb 9.1 oz) SpO2 98% BMI 25.57 kg/m? PHYSICAL EXAMINATION: General appearance: Well appearing, alert, in no acute distress, well-hydrated, well nourished. Skin: No facial erythema Head: Normocephalic, no masses, lesions, tenderness or abnormalities, no lymphadenopathy Ears: External ears normal, canals clear Neck: Supple, no adenopathy A:(A46) Erysipelas (primary encounter diagnosis) (R59.1) Lymphadenopathy Comment: Resolved Plan: Finish Augmentin and continue Benadryl. Call if there is any allergic reaction (Z12.31) Encounter for screening mammogram for breast cancer Plan: [facility] SCREENING [facility] [place] Follow-up for Medicare wellness exam to establish care with Dr. Emanuel. Aditya Aaron APRN.[facility] 03-16-2024 History of Present illness Narrative CC:ED follow up S:seen at [place] [facility] 03/12/24 See summary below: ED Course as of 03/12/24 1737 LexAlana's Documentation FriMar 12, [address] SINUS WO IVCON IMPRESSION: Clear sinuses. Mastoid air cells and middle ear cavities are clear. No abnormal soft tissue thickening or stranding. 1642 CBC + AUTO DIFF: WBC 7.28 RBC 5.18 Hemoglobin 14.4 Hematocrit 45.4 MCV 87.6 MCH 27.8 MCHC 31.7 RDW-CV 13.5 Platelet Count 236 MPV 11.2 Neut% 69.5 Abs Neut (ANC) 5.06 Lymph% 18.3 Abs Lymph 1.33 Loudoun% 11.1 Abs Loudoun 0.81 Eosin% 0.0 Abs Eosin <0.03 Baso% 0.7 Abs Baso 0.05 Immature Gran % 0.4 IMMATURE GRANS (ABS) 0.03 NRBC 0.0 Absolute nRBC <0.01 DTYPE Auto I have personally reviewed and interpreted the above laboratory study. Findings: No leukocytosis, anemia, quantitative platelet abnormalities 1642 BASIC METABOLIC PANEL: Glucose 81 BUN 19 Creatinine 0.94 Sodium 140 Potassium 4.7 Chloride 102 CO2 28 Anion Gap 10 Calcium 9.8 eGFR 64 I have personally reviewed and interpreted the above laboratory study. Findings: No clinically significant renal or electrolyte abnormalities Clinical Impressions as of 03/12/24 1737 Erysipelas Lymphadenopathy Facial erythema MDM / Disposition / Plan On evaluation, the patient does have left-sided posterior auricular lymphadenopathy associated with erythema that extends to the preauricular region and involves the face. The erythema is very mild at this time. There is no rash elsewhere to suggest systemic infection. Patient is afebrile and hemodynamically stable in the emergency department. No evidence of acute otitis media identified on physical exam. No evidence of otitis externa. Patient has no headache and no focal neurologic symptoms. Laboratory studies without any acute clinically significant laboratory abnormalities. CT demonstrating no evidence of mastoiditis at this time. Given the clinical history and progression of symptoms, most likely erysipelas at this time. Low suspicion for deep space or NET FISHER infection at this time. Patient was previously prescribed Augmentin and has been tolerating it for 1 dose. She requested potentially changing antibiotics due to prior intolerance of Augmentin causing rash previously. We discussed potential to change to clindamycin, however risk and benefits of changing antibiotics were discussed and patient elected to continue Augmentin at this time. Ele is reestablishing care today, she was last seen for acute problems in 2019 and has not had any medical health care since that time. She is taking the Augmentin as directed and has had significant improvement. Resolution of redness and swelling, there is no further pain or swollen lymph nodes.. Taking Benadryl which she has had a prior history of a rash with penicillin. She denies any chronic medical problems. Hobbies include sewing and playing cards. O:BP 116/74 Pulse 62 Temp 36.6 C (97.8 F) Wt 62.4 kg (137 lb 9.1 oz) SpO2 98% BMI 25.57 kg/m PHYSICAL EXAMINATION: General appearance: Well appearing, alert, in no acute distress, well-hydrated, well nourished. Skin: No facial erythema Head: Normocephalic, no masses, lesions, tenderness or abnormalities, no lymphadenopathy Ears: External ears normal, canals clear Neck: Supple, no adenopathy A:(A46) Erysipelas (primary encounter diagnosis) (R59.1) Lymphadenopathy Comment: Resolved Plan: Finish Augmentin and continue Benadryl. Call if there is any allergic reaction (Z12.31) Encounter for screening mammogram for breast cancer Plan: [facility] [facility] SCREENING [facility] [place] Follow-up for Medicare wellness exam to establish care with Dr. Emanuel. Aditya Aaron APRN.BRIAN documented in this encounter [facility] 03-12-2024 Note HNO ID: [id number] Author: SUNITA UNDERWOOD RT(R) Service: Radiology Author Type: Technologist Type: Progress Notes Filed: 03/12/2024 16:07 Note Text: Radiology Service Progress Note PATIENT NAME: Stephen Thomas DATE OF SERVICE: March 12, 2024 TIME: 4:06 PM PATIENT IDENTITY VERIFICATION COMPLETED USING TWO (2) IDENTIFIERS: Name and Date of confirmed by patient verbally and Name and Date of confirmed by identification band. FALL SCREENING: Has the patient had 2 falls in the last year or 1 fall with injury or currently using an Ambulatory Assistive Device (Walker, Cane, Wheelchair, Crutches, etc.)? Emergency Room Patient: Screened in ED PATIENT GENDER DATA: Female. status: : No status: NO. PATIENT RELEVANT IMPLANT DATA REVIEWED: Not Applicable PATIENT PRESENTS WITH AN IMPLANTABLE OR ATTACHED SCHEDULING COORDINATOR: No RADIOLOGY DEPARTMENT: CT; Exam(s) Completed: Sinus PERIPHERAL IV DATA: Not applicable SIGNED BY: RT Bhaskar(R) March 12, 2024 4:06 PM [facility] 03-11-2024 Note HNO ID: [id number] Author: MEGA PINEDO PA-C Service: ? Author Type: Physician Ticket Collector Or Usher Type: Progress Notes Filed: 03/11/2024 12:40 Note Text: HPI: Stephen Thomas is a 73 year old female with the below medical history here today for left-sided ear pain. Patient states she noticed something starting on Friday. Said then she noticed some lymph node developing. She noticed some redness and warmth to the area around the ear. Denies any fever chills or bodyaches. No past medical history on file. Medications: amoxicillin-clavulanate potassium (AUGMENTIN) 875-125 mg per tablet Take 1 tablet by mouth every 12 hours for 10 days. ibuprofen (MOTRIN) 800 mg tablet Take 1 tablet by mouth every 8 hours as needed for pain. No past surgical history on file. Review of Systems: All systems negative unless stated above in HPI. Vital Signs: BP 149/78 Pulse 79 Temp 36.6 ?C (97.9 ?F) (Temporal) SpO2 97% Physical Exam: General: Vitals noted, no distress. Afebrile. EENT: Left TM is unremarkable. Right TM is unremarkable. EACs unremarkable. Mildly tender over the left mastoid. Eyes unremarkable. Posterior oropharynx unremarkable. No peritonsillar abscess. No retropharyngeal mass. Neck: Supple. No meningismus through full range of motion. No anterior or posterior cervical lymphadenopathy. Cardiac: Regular, rate, rhythm, no murmur. Pulmonary: Lungs clear bilaterally with good aeration. No adventitious breath sounds. Abdomen: Soft, nontender, nonsurgical. No peritoneal signs. Normoactive bowel sounds. Extremities: No peripheral edema. Skin: No rash. Neuro: No focal neurologic deficits. Medical Decision-Making: Well-appearing 73-year-old female no current medical problems chief complaint today of left-sided earache. On exam patient has tenderness to palpation over the mastoid. She has some erythema and warmth surrounding the ear as well as the external ear. Does not appear like blatant cellulitis but concern for mastoiditis. Discussed at length for 20 minutes about going to the emergency room for CT scan IAC as well as IV antibiotics. She did not want to go to the emergency room at this point. I did prescribe Augmentin. Discussed allergies. She said she might have gotten a rash last time with amoxicillin but does not quite remember. I advised her to take a Benadryl with this. Discussed all reasons to go directly to emergency room. As of now her vital signs are unremarkable with a pulse of 79 with temperature 36.6. She was agreeable to discharge. Low threshold for going to emergency room. No AMA. Differential Diagnosis: Is extensive but includes otitis media/externa, serous otitis, TM perforation, viral URI, etc. Summary: History and exam as above. Will be home going with ASSESSMENT/PLAN: 1. Mastoiditis of left side - ICD9: 383.9, ICD10: H70.92 - AMOXICILLIN 875 MG-POTASSIUM CLAVULANATE 125 MG TABLET - IBUPROFEN 800 MG TABLET Mega Pinedo PA-C ' [facility] 03-11-2024 History of Present illness Narrative HPI: Stephen Thomas is a 73 year old female with the below medical history here today for left-sided ear pain. Patient states she noticed something starting on Friday. Said then she noticed some lymph node developing. She noticed some redness and warmth to the area around the ear. Denies any fever chills or bodyaches. No past medical history on file. Medications: amoxicillin-clavulanate potassium (AUGMENTIN) 875-125 mg per tablet Take 1 tablet by mouth every 12 hours for 10 days. ibuprofen (MOTRIN) 800 mg tablet Take 1 tablet by mouth every 8 hours as needed for pain. No past surgical history on file. Review of Systems: All systems negative unless stated above in HPI. Vital Signs: BP 149/78 Pulse 79 Temp 36.6 C (97.9 F) (Temporal) SpO2 97% Physical Exam: General: Vitals noted, no distress. Afebrile. EENT: Left TM is unremarkable. Right TM is unremarkable. EACs unremarkable. Mildly tender over the left mastoid. Eyes unremarkable. Posterior oropharynx unremarkable. No peritonsillar abscess. No retropharyngeal mass. Neck: Supple. No meningismus through full range of motion. No anterior or posterior cervical lymphadenopathy. Cardiac: Regular, rate, rhythm, no murmur. Pulmonary: Lungs clear bilaterally with good aeration. No adventitious breath sounds. Abdomen: Soft, nontender, nonsurgical. No peritoneal signs. Normoactive bowel sounds. Extremities: No peripheral edema. Skin: No rash. Neuro: No focal neurologic deficits. Medical Decision-Making: Well-appearing 73-year-old female no current medical problems chief complaint today of left-sided earache. On exam patient has tenderness to palpation over the mastoid. She has some erythema and warmth surrounding the ear as well as the external ear. Does not appear like blatant cellulitis but concern for mastoiditis. Discussed at length for 20 minutes about going to the emergency room for CT scan IAC as well as IV antibiotics. She did not want to go to the emergency room at this point. I did prescribe Augmentin. Discussed allergies. She said she might have gotten a rash last time with amoxicillin but does not quite remember. I advised her to take a Benadryl with this. Discussed all reasons to go directly to emergency room. As of now her vital signs are unremarkable with a pulse of 79 with temperature 36.6. She was agreeable to discharge. Low threshold for going to emergency room. No AMA. Differential Diagnosis: Is extensive but includes otitis media/externa, serous otitis, TM perforation, viral URI, etc. Summary: History and exam as above. Will be home going with ASSESSMENT/PLAN: 1. Mastoiditis of left side - ICD9: 383.9, ICD10: H70.92 - AMOXICILLIN 875 MG-POTASSIUM CLAVULANATE 125 MG TABLET - IBUPROFEN 800 MG TABLET Mega Pinedo PA-C ' documented in this encounter [facility] 08-01-2023 Note HNO ID: [id number] Author: Tyler Russell APRN.PREPARATION DEPARTMENT SUPERVISOR Service: ? Author Type: Nurse Practitioner Type: Progress Notes Filed: 08/01/2023 4:32 PM Note Text: This note was created using Hailor[employer]. Subjective Stephen Thomas is a 72 year old female who presents to [facility] with cc right knee discoloration noticed yesterday. No trauma. No pain. She noticed after her shower that her knee appeared discolored. She does have a hx of eczema. No itching. No otcs tried. Review of Systems Constitutional: Negative for activity change, appetite change, chills, diaphoresis, fatigue and fever. Respiratory: Negative for cough and shortness of breath. Cardiovascular: Negative for chest pain, palpitations and leg swelling. Musculoskeletal: Negative for arthralgias, joint swelling and myalgias. Skin: Positive for color change and rash. Neurological: Negative for weakness and numbness. Objective BP 130/80 (BP Site: Left Arm, BP Position: Sitting, BP Cuff Size: Regular Adult) Pulse 60 Temp 36.5 ?C (97.7 ?F) (Temporal) SpO2 98% Physical Exam Vitals and nursing note reviewed. Constitutional: General: She is not in acute distress. Appearance: Normal appearance. She is not ill-appearing or toxic-appearing. HENT: Head: Normocephalic and atraumatic. Cardiovascular: Pulses: Normal pulses. Pulmonary: Effort: Pulmonary effort is normal. Musculoskeletal: Right knee: No bony tenderness. Normal range of motion. No LCL laxity, MCL laxity, ACL laxity or PCL laxity. Normal pulse. Right lower leg: No swelling, tenderness or bony tenderness. Skin: General: Skin is warm and dry. Capillary Refill: Capillary refill takes less than 2 seconds. Findings: No bruising. Comments: Anterior right knee with faint hyperpigmentation and overall dry skin. No erythema and/or edema. Not tender to touch. No increase in warmth. No drainage. Knee with FAROM without pain. Normal gait. Neurological: General: No focal deficit present. Mental Status: She is alert and oriented to person, place, and time. Sensory: Sensation is intact. Motor: Motor function is intact. Coordination: Coordination is intact. Gait: Gait is intact. Deep Tendon Reflexes: Reflexes are normal and symmetric. Psychiatric: Mood and Affect: Mood normal. Behavior: Behavior normal. Thought Content: Thought content normal. Judgment: Judgment normal. ASSESSMENT/PLAN: 1. Discoloration of skin - ICD9: 709.00, ICD10: L81.9 (primary diagnosis) Suspect hyperpigmentation due to eczema flare Advised moisturizing - TRIAMCINOLONE ACETONIDE 0.1 % TOPICAL CREAM - use sparingly - Watch for worsening symptoms, including: ?The pain worsens rather than improves over 24 hours ?There is increasing redness or swelling of the area ?A red streak develops ?Pus is present ?There is fever - If any of these occur, seek further medical attention 2. Atopic dermatitis, unspecified type - ICD9: 691.8, ICD10: L20.9 - Use mild soap like Dove, Aveeno or Cetaphil - limit shower/bath to less than 15 minutes with warm, not hot, water - BID use of recommended emollients such as Cetaphil, Eucerin Plus, Aveeno, Aquaphor - TRIAMCINOLONE ACETONIDE 0.1 % TOPICAL CREAM Reviewed diagnosis and treatment options/plan with patient. The patient verbalized understanding and intent to comply with treatment. Follow-up instructions were given to the patient; they are to call their primary care provider if symptoms worsen or do not improve in 3-4 days. Specific signs and symptoms that would indicate the need for higher level of care were discussed in detail warranting prompt ER evaluation. The patient denied further concerns/questions at the end of the visit. Tyler Russell APRN.BRIAN [facility] Evaluation note Diagnosis Mastoiditis of left side- Primary Unspecified [facility]oiditis [facility] Erysipelas- Primary Lymphadenopathy Enlargement of lymph nodes Facial erythema Unspecified erythematous condition Encounter for screening mammogram for breast cancer documented in this encounter [facility] for referral (narrative)* Diagnostic Procedure Only (Routine) - Authorized Specialty Diagnoses / Procedures Referred By Leif petit Referred To Contact [facility] Diagnoses Encounter for screening mammogram for breast cancer Procedures [facility]AN SCREENING W [place] SCREENING DIGITAL BREAST TOMOSYNTHESIS BI SCREENING MAMMOGRAPHY BI 2-VIEW BREAST INC Aditya Echevarria, WALTER.PREPARATION DEPARTMENT SUPERVISOR [address] [place] [address] [facility] [address] [place] [address] Referral ID Status Reason Start Date Expiration Date Visits Requested Visits Authorized [id number] Authorized Auto-Generat ed Referral 03/17/2024 04/16/2025 1 1 [facility] Summary Purpose Family History No Family History Records FoundNo Family History Records FoundNo Family History Records FoundNo Family History Records Found Advance Directives No Advanced Directives Records FoundNo Advanced Directives Records FoundNo Advanced Directives Records FoundNo Advanced Directives Records Found Additional Source Comments INFORMATION SOURCE (unrecogn ized section and content) DATE CREATED AUTHOR 11/06/2018 [facility] DATE CREATED AUTHOR AUTHOR'S ORGANIZ ATION 11/13/2018 [facility] DATE CREATED AUTHOR AUTHOR'S ORGANIZ ATION 03/15/2024 [facility] DATE CREATED AUTHOR AUTHOR'S ORGANIZ ATION 04/03/2024 [facility] Source Comments (unrecognize d section and content) In the event this informatio n is protected by the Federal Confidentiality of Alcohol and Drug Abuse Patient Records regulations: The Federal rules restrict any use of the information to criminally investigate or prosecute any alcohol or drug abuse patient.[facility] the event this information is protected by the Federal Confidentiality of Alcohol and Drug Abuse Patient Records regulations: The Federal rules restrict any use of the information to criminally investigate or prosecute any alcohol or drug abuse patient.[facility] the event this information is protected by the Federal Confidentiality of Alcohol and Drug Abuse Patient Records regulations: The Federal rules restrict any use of the information to criminally investigate or prosecute any alcohol or drug abuse patient.[facility] Reason for Visit (unrecogniz ed section and content) Reason Comments Ear Pain Left ear swollen and itchy X Friday Reason Comments Hospital F/U Pt has no concerns Reason Onset Date Comments Population Health Navigation Outreach 04/02/2024 [facility] NO PCP LIST Care Teams (unrecognized sec tion and content) Chief Building Inspector Relationship Specialty Start Date End Date Jose Ortiz MD [address] [id number] PCP - General Internal Medicine 04/02/24 FOR RECORDS PERTAINING TO PATIENTS WHO ARE OR HAVE BEEN ENROLLED IN A CHEMICAL DEPENDENCY/SUBSTANCEABUSE PROGRAM, SOME INFORMATION MAY BE OMITTED. This clinical summary was aggregated from multiple sources. Caution should be exercised in using it in the provision of clinical care. This summary normalizes information from multiple sources, and as a consequence, information in this document may materially change the coding, format and clinical context of patient data. In addition, data may be omitted in some cases. CLINICAL DECISIONS SHOULD BE BASED ON THE PRIMARY CLINICAL RECORDS. [facility]. provides no warranty or guarantee of the accuracy or completeness of information in this document.
[2024-05-30] MEDS: Morphine 4 MG/ML Syringe IV (16:25)
[2024-05-30] MEDS: Ondansetron 4 MG/2 ML Vial IV (16:25)
[2024-05-30 16:31] LABS: Absolute Lymphocyte Count 1.09 X10^3/uL (0.83-4.51); Absolute Neutrophil Count 6.6 X10^3/uL (2.0-7.7); Basophil# 0.03 X10^3/uL; Basophil% 0.4 % (0-1); Hematocrit 41.1 % (37-47); Hemoglobin 13.2 g/dL (12.0-15.0); Lymphocyte # 1.09 X10^3/ul (0.83-4.51); Lymphocyte % 13.1 % (19-41); Mean Corp Hgb Conc 32.1 g/dL (32-36); Mean Corpuscular Hgb 27.8 pg (27.0-32.0); Mean Corpuscular Volume 86.7 fL (81-99); Mean Platelet Vol. 10.9 fl (6.2-12.0); Monocyte# 0.59 X10^3/uL; Monocyte% 7.1 % (0-10); NRBC Flagged by Analyzer 0 % (0-5); Neutrophil # 6.56 X10^3/uL (2.7-7.7); Neutrophil % 79.2 % (47-70); Platelet Count 220 K/mm3 (150-450); RBC Distribution Width CV 13.7 % (11.6-14.6); RBC Distribution Width SD 43.3 fl (35.1-43.9); Red Blood Count 4.74 M/mm3 (4.2-5.4); White Blood Count 8.3 K/mm3 (4.4-11.0)
[2024-05-30 16:54] LABS: ALB/GLOB Ratio 1.2 RATIO (0.9-2.4); AST(SGOT) 142 U/L (15-37); Alanine Aminotransfer ALT/SGPT 62 U/L (13-56); Albumin, Serum 3.7 g/dL (3.2-5.0); Alkaline Phosphatase 117 U/L (45-117); Anion Gap 7 (5-15); BUN 21 mg/dL (7-18); BUN/Creat Ratio 21.4 RATIO (10-20); Calcium,Total 8.9 mg/dL (8.5-10.1); Chloride 111 mmol/L (98-107); Creatinine, Serum 0.98 mg/dL (0.55-1.02); EST Glomerular Filtration Rate 59 mL/min (>60); Est Glom Filt Rate - Afr Amer 71 mL/min (>60); Globulin 3.2 g/dL (2.2-4.2); Glucose 87 mg/dL (74-106); Lipase 43 U/L (13-75); Potassium 4.2 mmol/L (3.5-5.1); Protein, Total 6.9 g/dL (6.4-8.2); Sodium Level 141 mmol/L (136-145); Troponin-I HS (w/2H Reflex) < 3 pg/mL (3.0-54.0)
--- NOTE | 2024-05-30 17:12 | CT_ITS ---
STUDY: CTA Chest and CTA Abdomen and Pelvis W/ Contrast Injection (and W/O Contrast Images if performed) 05/30/2024 6:25 PM REASON FOR EXAM: Female, 73 years old. Back pain TECHNIQUE: The examination was performed with the intravenous administration of IV 100mL Isovue-370 contrast material. Post-processing of the angiographic images was performed, with axial imaging and 3D reconstruction. MIPS images were obtained. Individualized dose optimization techniques were used for this CT. COMPARISON: None. FINDINGS: There are degenerative changes of the shoulders. There is no pneumothorax. There is no demonstrated pleural abnormality. Normal heart and pericardium with no evidence for calcifications of the coronary arteries. Normal mediastinum. Normal hilar regions. Normal pulmonary arteries. Normal aorta arch and descending thoracic aorta. There are multi-level degenerative changes of the thoracic spine. There are no acute findings of the upper abdomen. CT/CTA Chst, Abd, Pel W and/or WO IMPRESSION: No demonstrated pulmonary embolism or arterial dissection. There are no acute findings. STUDY: CTA Chest and CTA Abdomen and Pelvis W/ Contrast Injection (and W/O Contrast Images if performed) REASON FOR EXAM: Female, 73 years old. Back pain TECHNIQUE: Axial CT angiography multi-detector data acquisition was obtained following intravenous administration of IV 100mL Isovue-370 contrast. Axial images and MIP images were reconstructed from the axial data set. Post-processing of the angiographic images was performed, with multiplanar reformation and 3D reconstruction. MIPS images were obtained. Individualized dose optimization techniques were used for this CT. COMPARISON: None. FINDINGS: The visualized lung bases are unremarkable. The visualized portions of the heart are within normal limits. Normal liver. Normal gallbladder and extrahepatic biliary system. Normal spleen. Normal pancreas. Normal bilateral adrenal glands. No acute findings of the right kidney. There are hypodensities in the left kidney. These are consistent for cysts. No follow up required. Normal visualized stomach. Normal small intestine. There are multiple colonic diverticula consistent with diverticulosis. The appendix is visualized and appears normal. Normal inferior vena cava. Normal retroperitoneum. Normal urinary bladder. Normal visualized uterus. There is a small umbilical hernia containing fat. There are diffuse degenerative changes of the visualized lumbar spine. There is an unremarkable-appearing IVC. Abdominal aorta: There are calcifications of the abdominal aorta. This is consistent for atherosclerotic disease. There is no abdominal aortic aneurysm. Celiac and superior mesenteric arteries: There is mild diffuse narrowing. Inferior mesenteric artery: There is mild diffuse narrowing. Right renal artery(arteries): There is mild diffuse narrowing. Left renal artery(arteries): There is mild diffuse narrowing. Right common iliac artery: There is mild diffuse narrowing. Right external iliac artery: There is mild diffuse narrowing. Right internal iliac artery: There is mild diffuse narrowing. Left common iliac artery: There is mild diffuse narrowing. Left external iliac artery: There is mild diffuse narrowing. Left internal iliac artery: There is mild diffuse narrowing. IMPRESSION: (NOT LISTED IN ORDER OF SIGNIFICANCE) There are no acute findings. Diverticulosis. No aortic aneurysm. No abdominal aortic dissection Other findings as above. Electronically Signed: Travis Winchester MD at 18:29 EDT ,
[2024-05-30 17:40] VITALS: BP 137/64; PULSE 76; RESP 18; O2SAT 97
[2024-05-30 18:15] LABS: Red Blood Cells-Urine 0 SEEN /hpf (0-5); Squamous Epithelial Cells - UA 0 SEEN /hpf (5-10)
[2024-05-30 18:16] LABS: Color, Urine Straw (Yellow); Glucose, Dipstick Normal (Normal); Ketone-Dipstick Negative (Negative); Leukocyte Esterase-Dipstick 25 /ul (Negative); Nitrite-Dipstick Negative (Negative); Occult Blood-Urine Negative /ul (Negative); Protein-Dipstick Negative (Negative); Urine Bilirubin Dipstick Negative (Negative); Urine Clarity Clear (Clear); Urine Urobilinogen Normal (Normal)
[2024-05-30 18:28] LABS: Reflex Troponin-HS? (from REC) Y
[2024-05-30 18:37] LABS: Bacteria 1+ /hpf (None Seen); Mucous, Urine 1+ /hpf (<or=2+); White Blood Cells 10-25 SEEN /hpf (0-5)
[2024-05-30 19:00] VITALS: BP 109/71; PULSE 61; RESP 16; O2SAT 97
[2024-05-30 19:29] LABS: Troponin-I HS 4 pg/mL (3.0-54.0)
[2024-05-30 19:30] VITALS: BP 123/69
[2024-05-30] MEDS: Nitrofurantoin Macrocrystals 100 MG Capsule PO (19:54)
[2024-05-30 19:58] VITALS: BP 113/79; PULSE 78; RESP 16; TEMP 36.6; O2SAT 99
== END 2024-05-30 20:00 | disposition home or self-care (01) ==
PROVIDERS: Nurse Practitioner; Emergency Provider Emergency Medicine; Visit Provider Emergency Medicine
DX: M54.9 Dorsalgia, unspecified (principal); N39.0 Urinary tract infection, site not specified
CPT/HCPCS: 71275; 74174; 80053; 81001; 83690; 84484; 85025; 87077; 87086; 87088; 93005; 96361; 96374; 96375; 96376; 99284; J7030; Q9967; A4216; J2405